=== PATIENT | male | born 1955 | race Caucasian/White ===

== ENCOUNTER → 2018-09-28 | Outpatient (CLI) | payer MEDICARE, OTHER ==
[~2018-09-28] MED LIST: ALBU90OI61 INH; ATOR40TA PO; BUPR100 PO; CHLO25 PO; CIPR500 PO; CIPRO500 MG PO; DIAZ5 PO; FOLI1 PO; Flagyl500 MG PO; LEVSOD100 PO; LORA1 PO; Micro-K10 MEQ PO; Miralax17 GM PO; NAPR550 PO; ONDA4ODT MM; RXNAPNA550 PO; THIA100 PO; TRAM50 PO
== END | disposition home or self-care (01) ==
LOC: LAB SHORT 14:49 → LAB 14:49
DX: R30.0 Dysuria (principal)
CPT/HCPCS: 87086; 87147

== ENCOUNTER 2018-12-30 15:45 | Inpatient (IN) | payer MEDICARE, OTHER ==
[~2018-12-30] VITALS: Ht 177.8 cm; Wt 73.2 kg
[2018-12-30 18:32] LABS: Alanine Aminotransfer (ALT/SGP 81 U/L (12-78); Albumin, Blood 2.7 g/dL (3.4-5.0); Albumin/Globulin Ratio 0.8 (0.8-1.8); Alk Phos 161 U/L (50-136); Anion Gap 10 mmol/L (6-16); Aspartate Aminotrans (AST/SGOT 95 U/L (12-37); Bilirubin, Total 3.4 mg/dL (0.1-1.0); Blood Urea Nitrogen 18 mg/dL (8-24); Bun/Creatinine Ratio 16.8 (12.0-20.0); CO2, Blood 38 mmol/L (21-32); Calcium, Blood 8.4 mg/dL (8.5-10.1); Chloride, Blood 74 mmol/L (98-108); Creatinine, Blood 1.07 mg/dL (0.60-1.20); Globulin, Blood 3.5 g/dL (2.2-4.0); Glomerular Filtration Rate >60 (60-); Glucose, Blood 89 mg/dL (70-99); Potassium, Blood 1.9 mmol/L (3.5-5.5); Sodium, Blood 122 mmol/L (136-145); Total Protein, Blood 6.2 g/dL (6.4-8.2)
[2018-12-30 19:17] LABS: Source, Urine Clean Catch
[2018-12-30 19:24] LABS: Mean Platelet Volume 10.1 fL (9.1-12.4); Platelet Count 131 K/mm3 (150-400); RDW Coefficient Variation 12.8 % (11.7-14.2); RDW Standard Deviation 51.9 fL (35.1-46.3); Red Blood Cell Count 2.83 M/mm3 (4.30-5.90); White Blood Cell Count 13.76 K/mm3 (4.00-11.30)
[2018-12-30 19:24] LABS: Blood, Urine 4+ (Neg); Glucose Qualitative, Urine Neg (Neg); Ketones, Urine 1+ (Neg); Leukocyte Esterase, Urine 1+ (Neg); Nitrite, Urine Neg (Neg); Protein, Urine 3+ (Neg); Urobilinogen, Urine 2+ (Normal)
[2018-12-30 19:49] LABS: Appearance, Urine Hazy (Clear); Bilirubin, Urine 1+ (Neg); Color, Urine Yellow (P-Yellow)
[2018-12-30 19:51] LABS: White Blood Cells, Urine 0-2 /hpf (0-5)
[2018-12-30 19:53] LABS: Bacteria Few /hpf; Red Blood Cells, Urine Rare /hpf (0-2); Squamous Epithelial Cells Rare /hpf (Few)
[2018-12-30 20:14] LABS: Hemoglobin 12.2 g/dL (13.5-17.5); Mean Corpuscular HGB 43.1 pg (26.0-34.0)
[2018-12-30 20:17] LABS: Mean Corpuscular Volume 131 fL (80-100)
[2018-12-30 20:40] LABS: BASOPHILS PERCENT MAN 0 % (0-2); EOSINOPHILS PERCENT MAN 0 % (0-6); LYMPHOCYTES ABSOLUTE MAN 0.41 K/mm3 (0.84-5.20); LYMPHOCYTES PERCENT MAN 3 % (21-46); MONOCYTES ABSOLUTE MAN 0.68 K/mm3 (0.16-1.47); MONOCYTES PERCENT MAN 5 % (4-13); NEUTROPHILS ABSOLUTE MAN 12.65 K/mm3 (1.96-9.15); SEG NEUTROPHILS PERCENT MAN 92 % (41-73); TOTAL CELLS COUNTED 100
[2018-12-30 21:25] LABS: International Normalized Ratio 1.8; Prothrombin Time Results 18.1 Sec (9.7-11.5)
[2018-12-31 06:58] LABS: Platelet Count 133 K/mm3 (150-400); RDW Coefficient Variation 13.1 % (11.7-14.2); RDW Standard Deviation 54.3 fL (35.1-46.3); Red Blood Cell Count 2.77 M/mm3 (4.30-5.90); White Blood Cell Count 13.38 K/mm3 (4.00-11.30)
[2018-12-31 06:59] LABS: Alanine Aminotransfer (ALT/SGP 80 U/L (12-78); Albumin, Blood 2.5 g/dL (3.4-5.0); Albumin/Globulin Ratio 0.8 (0.8-1.8); Alk Phos 157 U/L (50-136); Anion Gap 8 mmol/L (6-16); Aspartate Aminotrans (AST/SGOT 101 U/L (12-37); Bilirubin, Total 3.7 mg/dL (0.1-1.0); Blood Urea Nitrogen 16 mg/dL (8-24); Bun/Creatinine Ratio 16.8 (12.0-20.0); CO2, Blood 38 mmol/L (21-32); Chloride, Blood 83 mmol/L (98-108); Creatinine, Blood 0.95 mg/dL (0.60-1.20); Glomerular Filtration Rate >60 (60-); Glucose, Blood 90 mg/dL (70-99); Sodium, Blood 129 mmol/L (136-145); Total Protein, Blood 5.5 g/dL (6.4-8.2)
[2018-12-31 07:02] LABS: Potassium, Blood 2.3 mmol/L (3.5-5.5)
[2018-12-31 07:45] LABS: Hemoglobin 11.7 g/dL (13.5-17.5); Mean Corpuscular HGB 42.2 pg (26.0-34.0)
[2018-12-31 07:50] LABS: Hematocrit 36.5 % (37.0-53.0)
[2018-12-31 07:51] LABS: Mean Corpuscular Volume 133 fL (80-100)
[2018-12-31 07:52] LABS: Mean Corpuscular HGB Conc 32.1 g/dL (31.5-36.5)
[2018-12-31 12:45] LABS: Anion Gap 5 mmol/L (6-16); Blood Urea Nitrogen 15 mg/dL (8-24); Bun/Creatinine Ratio 16.1 (12.0-20.0); CO2, Blood 39 mmol/L (21-32); Calcium, Blood 8.1 mg/dL (8.5-10.1); Chloride, Blood 85 mmol/L (98-108); Creatinine, Blood 0.93 mg/dL (0.60-1.20); Glomerular Filtration Rate >60 (60-); Glucose, Blood 101 mg/dL (70-99); Potassium, Blood 2.4 mmol/L (3.5-5.5); Sodium, Blood 129 mmol/L (136-145)
[2018-12-31] MEDS ORDERED: BUDE6HFA INH (12:56)
[2018-12-31] MEDS ORDERED: MELA3 PO (13:28)
--- NOTE | 2018-12-31 19:21 | NUR ---
SHIFT SUMMARY PT ALERT AND ORIENTED. VS STABLE. O2 SATS REMAIN ABOVE 90% ON 4L NC. LS EXP WHEEZES THROUGHOUT. PT COMPLAINS OF PAIN IN HIS NECK THAT IS CHRONIC. PT ABLE TO TRANSFER WITH SBA, BUT IS UNSTEADY ON HIS FEET. NC WITH KCL INFUSING PER ORDERS. PT HABING LIQUID BM THIS SHIFT. REPORT GIVEN TO PRIVATE DETECTIVE RN.
--- NOTE | 2018-12-31 19:45 | NUR ---
ASSUMED CARED PT RESTING IN ROOM COMFORTABLY AT THIS TIME. PT DAY SHIFT PT HAS BEEN RECEVING POTASSIUM IV, FOR LOW POTASSIUM LEVELS. PT ALSO C/O CHRONIC PAIN IN NECK AND KNEES. RESP EVEN UNLABORED ON 4L NC W/ SATS >92%. PT DENIES OTHER NEEDS AT THIS TIME. PT SBA TO BSC FOR DIARRHEA. CALL LIGHT IN REACH.
[2018-12-31] MEDS ORDERED: AMLO10 PO (20:18)
[2019-01-01 04:13] LABS: BASOPHILS ABSOLUTE AUTO 0.01 K/mm3 (0.00-0.23); BASOPHILS PERCENT AUTO 0 % (0-2); EOSINOPHILS ABSOLUTE AUTO 0.03 K/mm3 (0.00-0.68); EOSINOPHILS PERCENT AUTO 0 % (0-6); Hematocrit 32.7 % (37.0-53.0); IMMATURE GRAN PERCENT AUTO 1 % (0-1); LYMPHOCYTES PERCENT AUTO 3 % (21-46); MONOCYTES ABSOLUTE AUTO 1.13 K/mm3 (0.16-1.47); MONOCYTES PERCENT AUTO 9 % (4-13); Mean Corpuscular HGB 40.8 pg (26.0-34.0); Mean Corpuscular HGB Conc 36.7 g/dL (31.5-36.5); Mean Platelet Volume 10.4 fL (9.1-12.4); NEUTROPHILS ABSOLUTE AUTO 11.22 K/mm3 (1.96-9.15); NEUTROPHILS PERCENT AUTO 87 % (41-73); Platelet Count 124 K/mm3 (150-400); RDW Coefficient Variation 13.2 % (11.7-14.2); RDW Standard Deviation 54.5 fL (35.1-46.3); Red Blood Cell Count 2.94 M/mm3 (4.30-5.90); White Blood Cell Count 12.89 K/mm3 (4.00-11.30)
[2019-01-01 04:15] LABS: Mean Corpuscular Volume 111 fL (80-100)
[2019-01-01 04:34] LABS: Magnesium, Blood 1.5 mg/dL (1.6-2.4)
[2019-01-01 04:56] LABS: Alanine Aminotransfer (ALT/SGP 99 U/L (12-78); Albumin, Blood 2.6 g/dL (3.4-5.0); Albumin/Globulin Ratio 0.8 (0.8-1.8); Alk Phos 160 U/L (50-136); Anion Gap 5 mmol/L (6-16); Aspartate Aminotrans (AST/SGOT 138 U/L (12-37); Bilirubin, Total 2.4 mg/dL (0.1-1.0); Blood Urea Nitrogen 13 mg/dL (8-24); Bun/Creatinine Ratio 15.3 (12.0-20.0); CO2, Blood 38 mmol/L (21-32); Calcium, Blood 8.2 mg/dL (8.5-10.1); Chloride, Blood 87 mmol/L (98-108); Creatinine, Blood 0.85 mg/dL (0.60-1.20); Globulin, Blood 3.1 g/dL (2.2-4.0); Glomerular Filtration Rate >60 (60-); Glucose, Blood 111 mg/dL (70-99); Potassium, Blood 2.4 mmol/L (3.5-5.5); Sodium, Blood 130 mmol/L (136-145); Total Protein, Blood 5.7 g/dL (6.4-8.2)
--- NOTE | 2019-01-01 07:21 | NUR ---
SHIFT SUMMARY PT RESTING IN ROOM COMFORTABLY AT THIS TIME. PT HAD NO ACUTE CHANGES IN STATUS T/O NIGHT.PT SLEPT OFF AND ON, AND HAD 2 LIQUID STOOLS. PT WAS SBA TO BSC AMD NNEKA WELL. RESP EVEN UNLABORED ON 4L NC W/ SATS >95%. PT K LEVEL REMAINS LOW THIS AM, PROVIDER CALLED AND MEDICATIONS ORDERED. PT TOLERATING FAIR. CALL LIGHT IN REACH.
[2019-01-01 09:20] LABS: PCO2 Arterial 48.7 mmHg (35-45); PO2 Arterial 63.6 mmHg (80-100); pH Blood Arterial 7.54 (7.35-7.45)
--- NOTE | 2019-01-01 15:51 | NUR ---
PT ALERT AND ORIENTED. VS STABLE. O2 SATS HAVE REMAINED ABOVE 90% ON 2L NC. PT COMPLAINS OF PAIN IN HIS NECK AND LEGS. PT MEDICATED NEEDED. PT SBA TO THE BSC UNSTEADY ON FEET. PT CHANGED TO MEDICAL STATUS. REPORT CALLED TO MEDICAL FLOOR RN. WILL TRANSFER PT.
--- NOTE | 2019-01-01 18:26 | NUR ---
SHIFT SUMMARY- PT PCU TRANSFER THIS PM. PT AXO X3. PT ABLE TO TELL ME CURRENT MONTH AND YEAR BUT NOT CURRENT DAY. 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 MILD TREMORS OBSERVED WHEN PT EXTENDS ARMS. CIWA SCORE OF 8. MEDS GIVEN PER EMAR. BED ALARM ON. CALL LIGHT IN REACH. PT DENIES N/V. DENIES SOB. RESP E/U ON 2L O2 NC. NO OTHER SIGNIFICANT CHANGES THIS SHIFT.
--- NOTE | 2019-01-01 23:26 | NUR ---
ciwa 8 50 mg librium given and gave PT high calorie stanislaw drank 100%.
--- NOTE | 2019-01-02 04:35 | NUR ---
PT CONTINUES ON CIWA CHECKS. MEDICATED X 1 WITH 50 MG LIBRIUM WITH HELPFUL EFFECT. OXYGEN 2 L NC SMOKER. NO ATTEMPTS TO CLIMB OUT OF BED UNASSISTED
[2019-01-02 04:54] LABS: BASOPHILS PERCENT AUTO 0 % (0-2); EOSINOPHILS PERCENT AUTO 0 % (0-6); Hematocrit 30.9 % (37.0-53.0); Hemoglobin 11.6 g/dL (13.5-17.5); IMMATURE GRAN PERCENT AUTO 1 % (0-1); LYMPHOCYTES ABSOLUTE AUTO 0.59 K/mm3 (0.84-5.20); LYMPHOCYTES PERCENT AUTO 5 % (21-46); MONOCYTES PERCENT AUTO 9 % (4-13); Mean Corpuscular HGB 42.6 pg (26.0-34.0); Mean Corpuscular HGB Conc 37.5 g/dL (31.5-36.5); RDW Coefficient Variation 13.4 % (11.7-14.2); RDW Standard Deviation 56.8 fL (35.1-46.3); Red Blood Cell Count 2.72 M/mm3 (4.30-5.90); White Blood Cell Count 12.55 K/mm3 (4.00-11.30)
[2019-01-02 04:56] LABS: BASOPHILS ABSOLUTE AUTO 0.03 K/mm3 (0.00-0.23); EOSINOPHILS ABSOLUTE AUTO 0.04 K/mm3 (0.00-0.68); IMMATURE GRAN ABSOLUTE AUTO 0.11 K/mm3 (0.00-0.10); MONOCYTES ABSOLUTE AUTO 1.07 K/mm3 (0.16-1.47); NEUTROPHILS ABSOLUTE AUTO 10.77 K/mm3 (1.96-9.15); NEUTROPHILS PERCENT AUTO 85 % (41-73)
[2019-01-02 05:09] LABS: Mean Corpuscular Volume 114 fL (80-100); Mean Platelet Volume 10.4 fL (9.1-12.4); Platelet Count 116 K/mm3 (150-400)
[2019-01-02 05:26] LABS: Anion Gap 4 mmol/L (6-16); Blood Urea Nitrogen 10 mg/dL (8-24); Bun/Creatinine Ratio 14.7 (12.0-20.0); CO2, Blood 39 mmol/L (21-32); Calcium, Blood 8.4 mg/dL (8.5-10.1); Chloride, Blood 91 mmol/L (98-108); Creatinine, Blood 0.68 mg/dL (0.60-1.20); Glomerular Filtration Rate >60 (60-); Glucose, Blood 107 mg/dL (70-99); Magnesium, Blood 1.7 mg/dL (1.6-2.4); Phosphorus, Blood 1.6 mg/dL (2.5-4.9); Potassium, Blood 2.8 mmol/L (3.5-5.5); Sodium, Blood 134 mmol/L (136-145)
--- NOTE | 2019-01-02 08:00 | NUR ---
PT PLEASANT COOP A/O. SOME PAIN IN LOW BACK AND NECK. DR REAVES OKAYED TYLENOL. ADMININSTERED. SLOW TO RESPOND. CWA IS AT 5 THIS AM. SOME SHAKINESS IN HANDS. NO HALLUCINATIONS AT THIS TIME. NOT ADDING 2+3+4. DOES KNOW MONTH YR. WORK HISTORY. FAMILY, H/R REG, NO MURMER NOTED. NO TELE. LUNGS CLEAR UPPER, LIGHT WHEEZES IN BASES. ON 2L 02 AT THIS TIME. TRIED TO TURN OFF, DROPPED TO 88%. REPLACED . RESP EASY UNLABORED. BT X4 LAST BM 2 DAYS. WAS LIQUID PER PT. PENDING SAMPLE. VOIDS URINAL AND 1 ASST TO BATHROOM. BED IN LOW POSITION, CALL LITE IN REACH, BED ALARM ON FOR SAFETY.
--- NOTE | 2019-01-02 18:23 | NUR ---
PT PLEASANT TODAY. CWA IMPROVED. MOSTLY JUST LIGHT SHAKES. SOME C/O PAIN IN NECK AND LOW BACK. MED PER EMAR. HAS BEEN TAKING K+ T/O DAY. SOMEWHAT MORE AWAKE AND ARGUEMENTATIVE, BUT REMAINS PLEASANT. NO OTHER CONCERNS AT THIS TIME. BED IN LOW POSITION, CALL LITE IN REACH. BED ALARM ON FOR SAFETY
[2019-01-03 02:43] LABS: Adenovirus F 40/41 Not Detected (NOT DETECT); Astrovirus Not Detected (NOT DETECT); Campylobacter Sp Not Detected (NOT DETECT); Cryptosporidium Not Detected (NOT DETECT); Cyclospora Cayetanensis Not Detected (NOT DETECT); E. Coli O157 Not Detected (NOT DETECT); Entamoeba Histolytica Not Detected (NOT DETECT); Enteroaggregative E. coli-EAEC Not Detected (NOT DETECT); Enteropathogenic E. coli-EPEC Not Detected (NOT DETECT); Enterotoxigenic E. coli-ETEC Not Detected (NOT DETECT); Giardia Lamblia Not Detected (NOT DETECT); Norovirus GI/GII Not Detected (NOT DETECT); Plesiomonas Shigelloides Not Detected (NOT DETECT); Rotavirus A Not Detected (NOT DETECT); Salmonella Sp Not Detected (NOT DETECT); Sapovirus Not Detected (NOT DETECT); Shiga Toxin-prod E. coli-STEC Not Detected (NOT DETECT); Shigella/Enteroin E. coli-EIEC Not Detected (NOT DETECT); Vibrio Cholerae Not Detected (NOT DETECT); Vibrio Sp Not Detected (NOT DETECT); Yersinia Enterocolitica Not Detected (NOT DETECT)
--- NOTE | 2019-01-03 05:36 | NUR ---
SHIFT SUMMARY PT SLEPT POORLY, C/O GENERALIZED PAIN. MEDICATED WITH TYLENOL X2 THIS SHIFT. PT HAS OXYGEN ON PER NC AT 2L. UP TO BATHROOM WITH SBA AND WALKER, STOOL SPECIMEN SENT TO LAB AND TESTED POSITIVE FOR C-DIFF. HOSPITALIST CALLED AND NO NEW ORDERS RECEIVED. NORMA AT A 1. WILL CONTINUE TO MONITOR.
[2019-01-03 05:44] LABS: Anion Gap 6 mmol/L (6-16); Blood Urea Nitrogen 10 mg/dL (8-24); Bun/Creatinine Ratio 13.5 (12.0-20.0); CO2, Blood 35 mmol/L (21-32); Calcium, Blood 8.3 mg/dL (8.5-10.1); Chloride, Blood 92 mmol/L (98-108); Creatinine, Blood 0.74 mg/dL (0.60-1.20); Glomerular Filtration Rate >60 (60-); Glucose, Blood 95 mg/dL (70-99); Potassium, Blood 3.1 mmol/L (3.5-5.5); Sodium, Blood 133 mmol/L (136-145)
[2019-01-03] MEDS ORDERED: Vsl#3 Capsule1 EACH PO (12:19)
[2019-01-03] MEDS ORDERED: Micro-K10 MEQ PO (12:19)
--- NOTE | 2019-01-03 17:16 | NUR ---
DISCHARGED TO SNF WITH BELONGINGS AND TRANSFER PACKET. HE AMBULATES IN THE ROOM WITH 1 ASSIST AND A WALKER. HE HAD A SMALL WET STOOL JUST BEFORE HE LEFT. HE WEARS PULL UPS. HIS FRIEND BROUGHT HIS DOG INTO SEE HIM TODAY. TYLENOL GIVEN X1 THIS SHIFT FOR CHRONIC JOINT PAINS. REPORT GIVEN TO ALFONZO SALINAS RN.
== END 2019-01-03 16:00 | DRG 640 ==
LOC: ER 15:45 → ERHOLD 21:00 → MEDS 12-31 13:00 → PCU 12-31 13:53 → MEDS 01-01 16:43 → ENPENDDIS 01-03 11:19 → MEDS 01-03 16:00
PROVIDERS: Internal Medicine; Physician Assistant; ADMIT Internal Medicine
DX: E87.8 Other disorders of electrolyte and fluid balance, not elsewhere classified (principal); G92 Toxic encephalopathy; J96.21 Acute and chronic respiratory failure with hypoxia; J96.22 Acute and chronic respiratory failure with hypercapnia; F10.239 Alcohol dependence with withdrawal, unspecified; E44.0 Moderate protein-calorie malnutrition; E87.1 Hypo-osmolality and hyponatremia; E87.6 Hypokalemia; E83.42 Hypomagnesemia; K70.10 Alcoholic hepatitis without ascites; E03.9 Hypothyroidism, unspecified; E78.5 Hyperlipidemia, unspecified; G89.29 Other chronic pain; M54.2 Cervicalgia; R19.7 Diarrhea, unspecified; F17.210 Nicotine dependence, cigarettes, uncomplicated; E86.0 Dehydration; J44.9 Chronic obstructive pulmonary disease, unspecified; Z79.899 Other long term (current) drug therapy; Z68.24 Body mass index [BMI] 24.0-24.9, adult
CPT/HCPCS: 36415; 36600; 71045; 71046; 80048; 80053; 81001; 82140; 82550; 82803; 83735; 84100; 85025; 85027; 85610; 87086; 87324; 87507; 93005; 93010; 94640; 94760; 94761; 96361; 96365; 96366; 96367; 96372-59; 96375; 96376; 97110; 97116; 97162; 97530; 99285-25; A9270; G0480; J1650; J2060; J3010; J3411; J3475; J3480; J7030; J7040; J7042; J7050; J7120

== ENCOUNTER 2019-07-30 07:16 | Day surgery (SDC) | payer OTHER ==
[~2019-07-30] VITALS: Ht 177.8 cm; Wt 77.6 kg
[~2019-07-30 07:16] MED LIST changes: +AMLO10 PO; +BUDE6HFA INH; +MELA3 PO; +Vsl#3 Capsule1 EACH PO
== END 2019-07-30 09:35 | disposition home or self-care (01) ==
LOC: ORSCSDS 07:16
PROVIDERS: Surgery
PROC: 0DBM8ZX Excision of Descending Colon, Via Natural or Artificial Opening Endoscopic, Diagnostic (ICD-10-PCS; principal; 2019-07-30 08:30)
DX: Z12.11 Encounter for screening for malignant neoplasm of colon (principal); Z86.010 Personal history of colon polyps; D12.4 Benign neoplasm of descending colon; E78.5 Hyperlipidemia, unspecified; E03.9 Hypothyroidism, unspecified; F41.8 Other specified anxiety disorders; F32.9 Major depressive disorder, single episode, unspecified; I10 Essential (primary) hypertension; K21.9 Gastro-esophageal reflux disease without esophagitis; F17.210 Nicotine dependence, cigarettes, uncomplicated; J44.9 Chronic obstructive pulmonary disease, unspecified; Z79.899 Other long term (current) drug therapy
CPT/HCPCS: 88305; J2704; J7120

== ENCOUNTER 2021-02-07 15:07 | Emergency (ER) | payer OTHER ==
[~2021-02-07] VITALS: Ht 177.8 cm; Wt 63.5 kg
[2021-02-07 17:16] LABS: BASOPHILS ABSOLUTE AUTO 0.04 K/mm3 (0.00-0.23); BASOPHILS PERCENT AUTO 0 % (0-2); EOSINOPHILS ABSOLUTE AUTO 0.01 K/mm3 (0.00-0.68); EOSINOPHILS PERCENT AUTO 0 % (0-6); Hematocrit 36.9 % (37.0-53.0); Hemoglobin 13.5 g/dL (13.5-17.5); IMMATURE GRAN ABSOLUTE AUTO 0.04 K/mm3 (0.00-0.10); IMMATURE GRAN PERCENT AUTO 0 % (0-1); LYMPHOCYTES ABSOLUTE AUTO 0.59 K/mm3 (0.84-5.20); LYMPHOCYTES PERCENT AUTO 6 % (21-46); MONOCYTES ABSOLUTE AUTO 0.37 K/mm3 (0.16-1.47); MONOCYTES PERCENT AUTO 4 % (4-13); Mean Corpuscular HGB 38.8 pg (26.0-34.0); Mean Corpuscular HGB Conc 36.6 g/dL (31.5-36.5); Mean Corpuscular Volume 106 fL (80-100); NEUTROPHILS ABSOLUTE AUTO 8.95 K/mm3 (1.96-9.15); NEUTROPHILS PERCENT AUTO 90 % (41-73); Platelet Count 143 K/mm3 (150-400); RDW Coefficient Variation 13.7 % (11.7-14.2); RDW Standard Deviation 53.5 fL (35.1-46.3); Red Blood Cell Count 3.48 M/mm3 (4.30-5.90)
[2021-02-07 17:38] LABS: Alanine Aminotransfer (ALT/SGP 26 U/L (12-78); Albumin/Globulin Ratio 0.8 (0.8-1.8); Alk Phos 114 U/L (50-136); Anion Gap 16 mmol/L (6-16); Aspartate Aminotrans (AST/SGOT 54 U/L (12-37); Blood Urea Nitrogen 10 mg/dL (8-24); Bun/Creatinine Ratio 12.7 (12.0-20.0); CO2, Blood 29 mmol/L (21-32); Calcium, Blood 8.7 mg/dL (8.5-10.1); Chloride, Blood 87 mmol/L (98-108); Creatinine, Blood 0.79 mg/dL (0.60-1.20); Globulin, Blood 3.6 g/dL (2.2-4.0); Glomerular Filtration Rate >60 (60-); Glucose, Blood 80 mg/dL (70-99); Phosphorus, Blood 2.1 mg/dL (2.5-4.9); Sodium, Blood 132 mmol/L (136-145); Total Protein, Blood 6.6 g/dL (6.4-8.2)
[2021-02-07] MEDS ORDERED: MAGNESIUM OXID500 MG PO (20:00)
[2021-02-07] MEDS ORDERED: POTA20PAC PO (20:00)
[2021-02-07 20:10] LABS: Source, Urine Clean Catch
[2021-02-07 20:13] LABS: Blood, Urine 1+ (Neg); Color, Urine Brown (P-Yellow); Glucose Qualitative, Urine Neg (Neg); Ketones, Urine 2+ (Neg); Leukocyte Esterase, Urine 2+ (Neg); Nitrite, Urine Pos (Neg); Protein, Urine 2+ (Neg); Urobilinogen, Urine 3+ (Normal)
[2021-02-07 20:18] LABS: Bilirubin, Urine 2+ (Neg)
[2021-02-07 20:19] LABS: Appearance, Urine Hazy (Clear)
[2021-02-07] MEDS ORDERED: CIPR500 PO (20:20)
[2021-02-07 20:34] LABS: Bacteria Mod /hpf; Red Blood Cells, Urine 0-2 /hpf (0-2); Squamous Epithelial Cells Rare /hpf (Few)
== END 2021-02-07 21:45 | disposition home or self-care (01) ==
LOC: ER 15:07
PROVIDERS: Physician Assistant
DX: R53.1 Weakness (principal); E87.6 Hypokalemia; E83.42 Hypomagnesemia; F10.20 Alcohol dependence, uncomplicated; N39.0 Urinary tract infection, site not specified; J44.9 Chronic obstructive pulmonary disease, unspecified; F17.210 Nicotine dependence, cigarettes, uncomplicated; Z79.899 Other long term (current) drug therapy
CPT/HCPCS: 36415; 80053; 81001; 83690; 83735; 84100; 85025; 87086; 93005; 93010; 96365; 96366; 99283-25; A9270; G0480; J3475; J7030

== ENCOUNTER 2025-05-20 21:09 | Inpatient (IN) | payer MEDICARE, OTHER ==
[~2025-05-20] VITALS: Ht 172.7 cm; Wt 76.8 kg
[~2025-05-20 21:09] MED LIST changes: +MAGNESIUM OXID500 MG PO; +POTA20PAC PO
[2025-05-20] MEDS ORDERED: Diltiazem HCl 5 MG / ML 5ML Vial IV ONE ×2 (21:25→22:10)
[2025-05-20] MEDS ORDERED: NS 1,000 ML IV SCH (21:25)
[2025-05-20 21:32] LABS: BASOPHILS ABSOLUTE AUTO 0.04 K/mm3 (0.00-0.23); BASOPHILS PERCENT AUTO 0 % (0-2); EOSINOPHILS ABSOLUTE AUTO 0.01 K/mm3 (0.00-0.68); EOSINOPHILS PERCENT AUTO 0 % (0-6); Hematocrit 39.9 % (37.0-53.0); Hemoglobin 12.8 g/dL (13.5-17.5); IMMATURE GRAN ABSOLUTE AUTO 0.07 K/mm3 (0.00-0.10); IMMATURE GRAN PERCENT AUTO 1 % (0-1); LYMPHOCYTES ABSOLUTE AUTO 1.07 K/mm3 (0.84-5.20); LYMPHOCYTES PERCENT AUTO 9 % (21-46); MONOCYTES ABSOLUTE AUTO 1.33 K/mm3 (0.16-1.47); MONOCYTES PERCENT AUTO 11 % (4-13); Mean Corpuscular HGB Conc 32.1 g/dL (31.5-36.5); Mean Corpuscular Volume 103 fL (80-100); NEUTROPHILS ABSOLUTE AUTO 9.89 K/mm3 (1.96-9.15); NEUTROPHILS PERCENT AUTO 80 % (41-73); NRBC ABSOLUTE 0.00 K/mm3 (0.00-0.02); NRBC Auto 0.0 /100 WBC (0.0-0.2); Platelet Count 368 K/mm3 (150-400); RDW Coefficient Variation 13.7 % (11.7-14.2); RDW Standard Deviation 52.1 fL (35.1-46.3)
[2025-05-20 22:14] LABS: Alanine Aminotransfer (ALT/SGP 19 U/L (12-78); Albumin, Blood 2.8 g/dL (3.4-5.0); Albumin/Globulin Ratio 0.7 (0.8-1.8); Anion Gap 11 mmol/L (3-11); Aspartate Aminotrans (AST/SGOT 25 U/L (12-37); Bilirubin, Total 0.8 mg/dL (0.1-1.0); Blood Urea Nitrogen 43 mg/dL (8-24); CO2, Blood 30 mmol/L (21-32); Calcium, Blood 9.2 mg/dL (8.5-10.1); Chloride, Blood 99 mmol/L (98-108); Creatinine, Blood 1.86 mg/dL (0.60-1.20); Ethanol (Alcohol), Blood, Med <3 mg/dL; Globulin, Blood 3.9 g/dL (2.2-4.0); Glucose, Blood 129 mg/dL (70-99); Magnesium, Blood 1.4 mg/dL (1.6-2.4); Potassium, Blood 4.3 mmol/L (3.5-5.5); Sodium, Blood 136 mmol/L (136-145); Total Protein, Blood 6.7 g/dL (6.4-8.2)
[2025-05-20] MEDS ORDERED: Magnesium Sulf 2 GM/Water 50ML 50 ML IV ONE (22:30)
[2025-05-21] VITALS (77 sets, daily range): BP systolic 64–125; BP diastolic 41–103
[2025-05-21] MEDS ORDERED: Ipratropium/Albuterol SulF 2.5-0.5MG/3 ML Amp INH SCH (01:00)
[2025-05-21] MEDS ORDERED: FLU VACC TS2025(65UP)/MF59C/PF 45 MCG/0.5 ML SYRINGE IM SCH (01:00)
[2025-05-21] MEDS ORDERED: LORazepam 2 MG/ML 1ML Injection IV PRN ×2 (01:00→01:05)
[2025-05-21] MEDS ORDERED: NS 1,000 ML IV SCH ×2 (01:05→16:30)
[2025-05-21] MEDS ORDERED: Albuterol 2.5 MG/3 ML VIAL INH PRN (01:05)
[2025-05-21] MEDS ORDERED: CeFAZolin Sodium 1,000 MG in NS 50 ML IV SCH (03:15)
[2025-05-21 03:19] LABS: BASOPHILS ABSOLUTE AUTO 0.02 K/mm3 (0.00-0.23); BASOPHILS PERCENT AUTO 0 % (0-2); EOSINOPHILS ABSOLUTE AUTO 0.01 K/mm3 (0.00-0.68); EOSINOPHILS PERCENT AUTO 0 % (0-6); Hematocrit 37.2 % (37.0-53.0); Hemoglobin 12.2 g/dL (13.5-17.5); IMMATURE GRAN ABSOLUTE AUTO 0.03 K/mm3 (0.00-0.10); IMMATURE GRAN PERCENT AUTO 0 % (0-1); LYMPHOCYTES ABSOLUTE AUTO 0.65 K/mm3 (0.84-5.20); LYMPHOCYTES PERCENT AUTO 7 % (21-46); MONOCYTES ABSOLUTE AUTO 0.95 K/mm3 (0.16-1.47); MONOCYTES PERCENT AUTO 11 % (4-13); Mean Corpuscular HGB Conc 32.8 g/dL (31.5-36.5); Mean Corpuscular Volume 105 fL (80-100); NEUTROPHILS ABSOLUTE AUTO 7.31 K/mm3 (1.96-9.15); NEUTROPHILS PERCENT AUTO 82 % (41-73); NRBC ABSOLUTE 0.00 K/mm3 (0.00-0.02); NRBC Auto 0.0 /100 WBC (0.0-0.2); Platelet Count 315 K/mm3 (150-400); RDW Coefficient Variation 13.9 % (11.7-14.2); RDW Standard Deviation 53.0 fL (35.1-46.3)
[2025-05-21 03:59] LABS: Alanine Aminotransfer (ALT/SGP 20.0 U/L (12-78); Albumin, Blood 2.8 g/dL (3.4-5.0); Albumin/Globulin Ratio 0.8 (0.8-1.8); Anion Gap 7.0 mmol/L (3-11); Aspartate Aminotrans (AST/SGOT 26.0 U/L (12-37); Bilirubin, Total 0.6 mg/dL (0.1-1.0); Blood Urea Nitrogen 42.0 mg/dL (8-24); CO2, Blood 34.0 mmol/L (21-32); Calcium, Blood 9.3 mg/dL (8.5-10.1); Chloride, Blood 100.0 mmol/L (98-108); Creatinine, Blood 1.74 mg/dL (0.60-1.20); Globulin, Blood 3.5 g/dL (2.2-4.0); Glucose, Blood 117.0 mg/dL (70-99); Magnesium, Blood 2.2 mg/dL (1.6-2.4); Potassium, Blood 4.3 mmol/L (3.5-5.5); Sodium, Blood 137.0 mmol/L (136-145); Total Protein, Blood 6.3 g/dL (6.4-8.2)
[2025-05-21] MEDS ORDERED: NS 500 ML IV ONE (05:40)
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
[2025-05-21] MEDS ORDERED: Heparin Sodium,Porcine 5,000 UNIT/0.5 ML SDV SC SCH (09:00)
[2025-05-21] MEDS ORDERED: Lactobacil 2-S.Thermo-Bifido 1 1 Cap PO SCH (09:00)
--- NOTE | 2025-05-21 09:14 | NUR ---
ASSUMPTION OF CARE ASSUMED CARE OF PATIENT AT APPROX 0700. PATIENT A&OX4 AND ABLE TO MAKE NEEDS KNOWN. NO FOCAL DEFICITS. HR SINUS IN THE 70S-80S. BP STABLE WITH MAPS >65 ON THE LEVOPHED GTT. SEE FLOWSHEET FOR TITRATIONS. PATIENT ON 5L O2 VIA NC WITH SPO2 >94%. PATIENT HAD BM UPON ARRIVIAL TO ICU. PATIENT UP TO TOILET WITH FWW AND NURSE ASSIST TO VOID. PATIENT EXPRESSED WANTING TO "GET OUT OF HERE." CALL LIGHT NEAR.
[2025-05-21] MEDS ORDERED: DOPamine 400 MG/Dextrose 250 ML Bag IV ONE (13:33)
[2025-05-21] MEDS ORDERED: Sodium Bicarb 8.4% 50 mEq Syringe IV ONE (13:33)
[2025-05-21] MEDS ORDERED: Clindamycin 900mg in D5W 50ML 50 ML IV SCH (14:00)
[2025-05-21] MEDS ORDERED: Vancomycin (Pharmacy Consult) IV PRN (15:45)
[2025-05-21 16:01] LABS: Anion Gap 5.0 mmol/L (3-11); Blood Urea Nitrogen 37.0 mg/dL (8-24); CO2, Blood 33.0 mmol/L (21-32); Calcium, Blood 8.6 mg/dL (8.5-10.1); Chloride, Blood 102.0 mmol/L (98-108); Creatinine, Blood 1.44 mg/dL (0.60-1.20); Glucose, Blood 150.0 mg/dL (70-99); Potassium, Blood 4.2 mmol/L (3.5-5.5); Sodium, Blood 136.0 mmol/L (136-145)
--- NOTE | 2025-05-21 17:45 | NUR ---
SHIFT SUMMARY PATIENT A&OX4 AND ABLE TO MAKE NEEDS KNOWN. NO FOCAL DEFICITS. LAST CIWA WAS 5. PATIENT IN SINUS IN THE 70S. PATIENT OFF OF LEVOPHED SINCE 1550, BP STABLE WITH MAPS >65. PATIENT ON 3L O2 VIA NC WITH SPO2 >90%. PATIENT UP WITH FWW AND STAND BY ASSIST. PATIENT USES URINAL IND WITH YELLOW URINE OUT. NO BM THIS SHIFT. PATIENT ENDORSES DRINKING 4-6 OUNCES OF [place] DAILY WITH NO PLANS OF STOPPING. 18G IV TO RIGHT AND LEFT FA PATENT. BED IN LOWEST POSITION. CALL LIGHT IN REACH.
[2025-05-21 19:13] LABS: U Amphetamine Screen Not Detected; U Barbiturate Screen Not Detected; U Benzodiazapine Screen DETECTED; U Buprenorphine Screen Not Detected; U Cannabinoids Screen Not Detected; U Cocaine Screen Not Detected; U Methadone Screen Not Detected; U Methamphetamine Screen Not Detected; U Opiates Screen Not Detected; U Oxycodone Screen Not Detected; U Phencyclidine Screen Not Detected
--- NOTE | 2025-05-21 22:01 | NUR ---
ASSUMPTION OF CARE: ASSUMED CARE AT START OF SHIFT (1899). REPORT RECEIVED FROM DAY SHIFT RN. PT IS DOING WELL AND RESTING IN BED. PT IS ALERT BUT CONFUSED ABOUT THE DATE, ABLE TO FOLLOW COMMANDS. PT DENIES ANY PAIN, CP, OR SOB AT THIS TIME. LUNG SOUNDS ARE COARSE THROUGH OUT, ON O2 @ 3LPM VIA NC SPO2 >95%. SINUS RYTHM WITH SBP: 110'S MAP >65 HR: 70'S. IV: R AND L FORERAM. PT IS ABLE TO BEDSIDE URINAL WITH MINIMAL ASSISTANCE. LINES, AN CORDS PLACED OUT OF REACH. CALL LIGHT PLACED WITHIN REACH.
[2025-05-22] VITALS (30 sets, daily range): BP systolic 97–133; BP diastolic 58–74
[2025-05-22 03:10] LABS: BASOPHILS ABSOLUTE AUTO 0.03 K/mm3 (0.00-0.23); BASOPHILS PERCENT AUTO 0 % (0-2); EOSINOPHILS ABSOLUTE AUTO 0.08 K/mm3 (0.00-0.68); EOSINOPHILS PERCENT AUTO 1 % (0-6); Hematocrit 33.0 % (37.0-53.0); Hemoglobin 10.3 g/dL (13.5-17.5); IMMATURE GRAN ABSOLUTE AUTO 0.03 K/mm3 (0.00-0.10); IMMATURE GRAN PERCENT AUTO 0 % (0-1); LYMPHOCYTES ABSOLUTE AUTO 0.74 K/mm3 (0.84-5.20); LYMPHOCYTES PERCENT AUTO 10 % (21-46); MONOCYTES ABSOLUTE AUTO 0.92 K/mm3 (0.16-1.47); MONOCYTES PERCENT AUTO 12 % (4-13); Mean Corpuscular HGB Conc 31.2 g/dL (31.5-36.5); Mean Corpuscular Volume 107 fL (80-100); NEUTROPHILS ABSOLUTE AUTO 5.91 K/mm3 (1.96-9.15); NEUTROPHILS PERCENT AUTO 77 % (41-73); NRBC ABSOLUTE 0.00 K/mm3 (0.00-0.02); NRBC Auto 0.0 /100 WBC (0.0-0.2); Platelet Count 248 K/mm3 (150-400); RDW Coefficient Variation 14.0 % (11.7-14.2); RDW Standard Deviation 55.2 fL (35.1-46.3)
[2025-05-22 03:32] LABS: Anion Gap 6 mmol/L (3-11); Blood Urea Nitrogen 31 mg/dL (8-24); CO2, Blood 31 mmol/L (21-32); Calcium, Blood 8.2 mg/dL (8.5-10.1); Chloride, Blood 103 mmol/L (98-108); Creatinine, Blood 1.36 mg/dL (0.60-1.20); Glucose, Blood 88 mg/dL (70-99); Potassium, Blood 4.5 mmol/L (3.5-5.5); Sodium, Blood 135 mmol/L (136-145); Vancomycin, Random 14.5 ug/mL
--- NOTE | 2025-05-22 06:19 | NUR ---
SHIFT SUMMARY: PT IS DOING WELL AND RESTING IN BED. NO ACUTE CHANGES THROUGHOUT THE SHIFT. PT WAS ABLE TO SLEEP PART OF THE NIGHT, WHILE SLEEPING PT'S SPO2 LEVELS WOULD DROP INTO THE LOW 80'S. PT O2 WAS INCREASED TO 6LPM AND SPO2 >95%. THE REST OF THE VITAL SIGNS REMAINED STABLE THROUGHOUT THE NIGHT. LINES AND CORDS PLACED OUT OF REACH. CALL LIGHT PLACE WITHIN REACH.
--- NOTE | 2025-05-22 10:25 | NUR ---
ASSUMPTION OF CARE ASSUMED CARE OF PT AT APPROX. 0700. PT RESTING IN BED, SLEEPING BUT AROUSABLE. PT ORIENTED X4, ANSWERS QUESTIONS APPROPRIATELY, FOLLOWS DIRECTIONS PROMPTED. PT ABLE TO MAKE HIS NEEDS KNOWN. PT MOVES EXTREMITIES EQUALLY BILATERALLY. AMBULATES IN ROOM W/ ASSISTANCE. HR 60-80'S SINUS W/ PAC'S, PT DENIES CP/PRESSURE, MAP >65. PT ON 3L NC, SPO2 >92%, PT DENIES SOB/DIFFICULTY BREATHING. BOWEL TONES HYPOACTIVE BUT PRESENT THROUGHOUT. PT TOLERATING PO INTAKE. PT USES URINAL TO VOID. PIV IN PLACE TO RFA AND LFA, NS INFUSING AT 125ML/HR. PT CURRENTLY IN BEDSIDE RECLINER, CALL LIGHT IN REACH. CARE CONTINUES.
--- NOTE | 2025-05-22 16:17 | NUR ---
PT UPDATE PT ATTEMPTED TO GET OUT OF BED, RN TO ROOM, PT SITTING AT BEDSIDE NEEDING TO URINATE. URINAL PROVIDED. WHILE PT SITTING AT SIDE OF BED, SP02 DECREASED TO 60-70%. OXY MASK APPLIED, O2 INCREASED TO 10LPM. SPO2 RECOVERED, OXY MASK TITRATED DOWN TO 2L. SPO2 >95%. PT SITTING IN RECLINER, CHAIR ALARM IN PLACE. PT INSTRUCTED TO CALL BEFORE ATTEMPTING TO GET UP FROM CHAIR. CALL LIGHT IN REACH. CARE CONTINUES.
--- NOTE | 2025-05-22 18:02 | NUR ---
SHIFT SUMMMARY PT RESTING IN RECLINER, SLEEPING BUT AROUSABLE, ORIENTED X3-4 THIS SHIFT. PT CONFUSED UPON AWAKENING. PT ANSWERS QUESTIONS APPROPRIATELY, FOLLOWS DIRECTION WHEN PROMPTED AND IS ABLE TO MAKE HIS NEEDS KNOWN. PT MOVES EXTREMITIES EQUALLY BILATERALLY, AMBULATES IN THE ROOM WITH NURSE ASSIST. PT IMPULSIVE AT TIMES, CHAIR ALARM IN PLACE. HR 60-80'S SINUS WITH PAC'S, MAP >65. PT ON NC/OXYMASK THROUGHOUT THE SHIFT, TITRATED OXYGEN ACCORDINGLY, PT CURRENTLY ON 3LPM VIA NC, OXYGEN SATURATION >90%. ABDOMEN SOFT. BOWEL TONES ACTIVE THROUGHOUT, PT USES URINAL TO VOID. PIV IN PLACE TO RFA AND LFA SL. CALL LIGHT WITHIN REACH, CHAIR ALARM IN PLACE, CARE CONTINUES.
--- NOTE | 2025-05-22 19:29 | NUR ---
ASSUMPTION OF CARE NOTE: PT CURRENTLY SITTING UP IN CHAIR AND DROWSY BUT ABLE TO ANSWER QUESTIONS WHEN ASKED. PT IS A&OX2-3. PT IS [place] AND OFTEN HAS AN UNPRODUCTIVE COUGH THAT WAKES HIM UP. PT CURRENTLY ON 6L HIGH FLOW NC. AND SATS >90%. SBP;S IN 110'S AN HR IN 70'S.PT IS IMPULSIVE AND HAS CHAIR ALARM SET FOR SAFETY. PATENT PIV TO LFA &RFA. PATIENT STATES HE IS NOT IN PAIN BUT READY TO GO HOME. PT HAS CALL LIGHT IN REACH AND CHAIR ALARM SET.
[2025-05-23] VITALS (73 sets, daily range): BP systolic 83–132; BP diastolic 51–86
[2025-05-23] MEDS ORDERED: NS 1,000 ML IV ONE ×2 (04:42→05:00)
[2025-05-23] MEDS ORDERED: Albuterol 2.5 MG/3 ML VIAL INH PRN (04:45)
[2025-05-23 04:46] LABS: BASOPHILS ABSOLUTE AUTO 0.04 K/mm3 (0.00-0.23); BASOPHILS PERCENT AUTO 0 % (0-2); EOSINOPHILS ABSOLUTE AUTO 0.09 K/mm3 (0.00-0.68); EOSINOPHILS PERCENT AUTO 1 % (0-6); Hematocrit 42.9 % (37.0-53.0); Hemoglobin 13.2 g/dL (13.5-17.5); IMMATURE GRAN ABSOLUTE AUTO 0.39 K/mm3 (0.00-0.10); IMMATURE GRAN PERCENT AUTO 4 % (0-1); LYMPHOCYTES ABSOLUTE AUTO 0.58 K/mm3 (0.84-5.20); LYMPHOCYTES PERCENT AUTO 5 % (21-46); MONOCYTES ABSOLUTE AUTO 1.22 K/mm3 (0.16-1.47); MONOCYTES PERCENT AUTO 11 % (4-13); Mean Corpuscular HGB Conc 30.8 g/dL (31.5-36.5); Mean Corpuscular Volume 112 fL (80-100); NEUTROPHILS ABSOLUTE AUTO 8.70 K/mm3 (1.96-9.15); NEUTROPHILS PERCENT AUTO 79 % (41-73); NRBC ABSOLUTE 0.00 K/mm3 (0.00-0.02); NRBC Auto 0.0 /100 WBC (0.0-0.2); Platelet Count 326 K/mm3 (150-400); RDW Coefficient Variation 13.7 % (11.7-14.2); RDW Standard Deviation 56.0 fL (35.1-46.3)
[2025-05-23] MEDS ORDERED: NS 1,000 ML IV SCH (05:00)
[2025-05-23 05:07] LABS: Alanine Aminotransfer (ALT/SGP 18.0 U/L (12-78); Albumin, Blood 3.1 g/dL (3.4-5.0); Albumin/Globulin Ratio 0.7 (0.8-1.8); Anion Gap 3.0 mmol/L (3-11); Aspartate Aminotrans (AST/SGOT 33.0 U/L (12-37); Bilirubin, Total 0.4 mg/dL (0.1-1.0); Blood Urea Nitrogen 26.0 mg/dL (8-24); CO2, Blood 34.0 mmol/L (21-32); Calcium, Blood 9.5 mg/dL (8.5-10.1); Chloride, Blood 102.0 mmol/L (98-108); Creatinine, Blood 1.45 mg/dL (0.60-1.20); Globulin, Blood 4.3 g/dL (2.2-4.0); Glucose, Blood 135.0 mg/dL (70-99); Magnesium, Blood 1.7 mg/dL (1.6-2.4); Potassium, Blood 5.9 mmol/L (3.5-5.5); Sodium, Blood 133.0 mmol/L (136-145); Total Protein, Blood 7.4 g/dL (6.4-8.2)
[2025-05-23 05:17] LABS: pH Blood Arterial 7.15 (7.35-7.45)
[2025-05-23] MEDS ORDERED: Ipratropium/Albuterol SulF 2.5-0.5MG/3 ML Amp INH SCH (05:23)
[2025-05-23] MEDS ORDERED: Insulin Regular 100 UNIT/ML 10ML Vial IV ONE ×2 (05:40→07:30)
[2025-05-23] MEDS ORDERED: Mag Sulfate 1 GM/D5% 100ML 100 ML IV STA (05:41)
[2025-05-23] MEDS ORDERED: Pantoprazole Sodium 40 MG Injection IV SCH (06:00)
[2025-05-23] MEDS ORDERED: FentaNYL Citrate 50 MCG/ML 2 ML Injection IV PRN (06:10)
[2025-05-23] MEDS ORDERED: Etomidate 2MG / ML 10ML Vial IV ONE (06:28)
--- NOTE | 2025-05-23 06:47 | NUR ---
SHIFT SUMM: PT HAS BEEN RESTING THIS SHIFT AND ALTERNATING BETWEEN CHAIR AND BED UP UNTIL 421 WHEN PT DESATTED TO THE 70-80'S AND UNABLE TO RECOVER OR BECOME AROUSABLE WITH STERNUM RUB. PT THEN BECAME INTUBATED AND SEDATED AND IS CURRENTLY ON [facility] VENT. PATENT TEMP SMITH PLACED AND DRAINING TO GRAVITY. POT 5.9 AND 2 AMPS OF D/50 AND 5 U OF REG INSULIN IV GIVEN. PT WAS HAVING BRONCHOSPASMS AND WAS GIVEN 125 OF SOLUMEDROL AND 1G OF MAG. CURRENTLY SEDATED WITH PROP AT 20. NS BOLUS GIVEN FOR HYPOTENSION AFTER INTUBATION-DECREASED TO 125ML/HR AFTER BOLUS. SOFT BUE RESTRAINTS PLACED TO PREVENT EXTUBATION. SISTER PAT NOTIFIED AND UPDATED. CRITICAL LABS REPORTED TO DR EDGAR. REPORT GIVEN TO ADRIENNE GILMAN.
--- NOTE | 2025-05-23 07:13 | NUR ---
ASSUMPTION OF CARE RECEIVED REPORT FROM [facility] NURSE. PT SEDATED WITH PROP AT 20MCG/KG/HR. PT INTUBATED, VENT SETTINGS AC/PC //8/40% FIO2. SPO2 >92%. MAP >65. SBP >100. PT IN NSR. PT HAS SMITH CATH IN PLACE, WNL. PT HAS RAC AND LFA, WNL. PT AFEBRILE. PT TOLERATING VENT SETTINGS, PRN MEDS IN EMAR. CALL LIGHT WITHIN REACH AND NO NEEDS EXPRESSED AT THIS TIME.
[2025-05-23] MEDS ORDERED: Cetylpyridinium Chloride 1 EA MISC MT SCH (08:00)
[2025-05-23 08:17] LABS: pH Blood Venous 7.25 (7.34-7.37)
[2025-05-23 08:25] LABS: BASOPHILS ABSOLUTE AUTO 0.02 K/mm3 (0.00-0.23); BASOPHILS PERCENT AUTO 0 % (0-2); EOSINOPHILS ABSOLUTE AUTO 0.01 K/mm3 (0.00-0.68); EOSINOPHILS PERCENT AUTO 0 % (0-6); Hematocrit 35.4 % (37.0-53.0); Hemoglobin 10.6 g/dL (13.5-17.5); IMMATURE GRAN ABSOLUTE AUTO 0.10 K/mm3 (0.00-0.10); IMMATURE GRAN PERCENT AUTO 1 % (0-1); LYMPHOCYTES ABSOLUTE AUTO 0.19 K/mm3 (0.84-5.20); LYMPHOCYTES PERCENT AUTO 2 % (21-46); MONOCYTES ABSOLUTE AUTO 0.93 K/mm3 (0.16-1.47); MONOCYTES PERCENT AUTO 8 % (4-13); Mean Corpuscular HGB Conc 29.9 g/dL (31.5-36.5); Mean Corpuscular Volume 111 fL (80-100); NEUTROPHILS ABSOLUTE AUTO 9.84 K/mm3 (1.96-9.15); NEUTROPHILS PERCENT AUTO 89 % (41-73); NRBC ABSOLUTE 0.00 K/mm3 (0.00-0.02); NRBC Auto 0.0 /100 WBC (0.0-0.2); Platelet Count 249 K/mm3 (150-400); RDW Coefficient Variation 13.6 % (11.7-14.2); RDW Standard Deviation 56.0 fL (35.1-46.3)
[2025-05-23 08:52] LABS: Alanine Aminotransfer (ALT/SGP 13 U/L (12-78); Albumin, Blood 2.5 g/dL (3.4-5.0); Albumin/Globulin Ratio 0.7 (0.8-1.8); Anion Gap 9 mmol/L (3-11); Aspartate Aminotrans (AST/SGOT 24 U/L (12-37); Bilirubin, Total 0.5 mg/dL (0.1-1.0); Blood Urea Nitrogen 26 mg/dL (8-24); CO2, Blood 28 mmol/L (21-32); Calcium, Blood 8.8 mg/dL (8.5-10.1); Chloride, Blood 105 mmol/L (98-108); Creatinine, Blood 1.40 mg/dL (0.60-1.20); Globulin, Blood 3.4 g/dL (2.2-4.0); Glucose, Blood 201 mg/dL (70-99); Magnesium, Blood 1.6 mg/dL (1.6-2.4); Potassium, Blood 4.5 mmol/L (3.5-5.5); Sodium, Blood 137 mmol/L (136-145); Total Protein, Blood 5.9 g/dL (6.4-8.2); Vancomycin, Trough 13.2 ug/mL (5.0-10.0)
[2025-05-23] MEDS ORDERED: Multivitamins 1 Tab PO SCH (09:00)
[2025-05-23] MEDS ORDERED: Meropenem 2,000 MG in NS 250 ML IV SCH (09:00)
[2025-05-23] MEDS ORDERED: Albumin (Human) 25gm/100ml 100 ML IV SCH (09:55)
[2025-05-23] MEDS ORDERED: Folic Acid 1 MG TAB PT SCH (10:00)
[2025-05-23] MEDS ORDERED: Docusate Sodium Liquid 100 MG UDC PT PRN (10:20)
[2025-05-23] MEDS ORDERED: Magnesium Hydroxide Conc 10 ML UDC PT PRN (10:20)
[2025-05-23] MEDS ORDERED: Hydrogen Peroxide 1.5 % Solution MT SCH (12:00)
--- NOTE | 2025-05-23 17:44 | NUR ---
SHIFT SUMMARY PT IS INTUBATED AND SEDATED WITH PROP T/O SHIFT. SAT BEGAN AT 1645, PT DOES NOT OPEN EYES OR FOLLOW COMMANDS. PT REACTS TO NOXIOUS STIMULI. PT IS IN NSR WITH PACS, HR IN 80-90S, MAP >65. SBP IN 90-110S. PT ON VENTILATOR, ETT 8.0 AND 24 AT GUMS. PT WAS IN PC, PT NOW IN AC/VC 16/450/8/35% FIO2 WITH SPO2>92%. PT HAS MODERATE THIN CLEAR ORAL SECRETIONS. PT HAS SMITH CATH IN PLACE DRAINING TO GRAVITY WITH 390ML OUTPUT FOR SHIFT. PT HAS BLE +2 EDEMA WITH SCABBING. PHOTOS IN CHART. PT HAD SEVERE TREMORS DURING AM ASSESSMENT, TREATED WITH ATIVAN PER EMAR. TREMORS IMPROVED T/O SHIFT. CIWA <10 T/O SHIFT. PT WAS FEBRILE THIS AM TMAX 99.6 AT 0845, PT BECAME HYPOTHERMIC AND LOWEST TEMP WAS 94.2. PT HAS MI HUGGER PLACED, TEMP NOW AT 96.4. NO NEEDS EXPRESSED AT THIS TIME.
[2025-05-23] MEDS ORDERED: Lactobacil 2-S.Thermo-Bifido 1 1 Cap PT SCH (21:00)
[2025-05-24] VITALS (74 sets, daily range): BP systolic 92–137; BP diastolic 49–117
[2025-05-24 04:43] LABS: BASOPHILS ABSOLUTE AUTO 0.02 K/mm3 (0.00-0.23); BASOPHILS PERCENT AUTO 0 % (0-2); EOSINOPHILS ABSOLUTE AUTO 0.00 K/mm3 (0.00-0.68); EOSINOPHILS PERCENT AUTO 0 % (0-6); Hematocrit 28.4 % (37.0-53.0); Hemoglobin 9.4 g/dL (13.5-17.5); IMMATURE GRAN ABSOLUTE AUTO 0.10 K/mm3 (0.00-0.10); IMMATURE GRAN PERCENT AUTO 1 % (0-1); LYMPHOCYTES ABSOLUTE AUTO 0.13 K/mm3 (0.84-5.20); LYMPHOCYTES PERCENT AUTO 1 % (21-46); MONOCYTES ABSOLUTE AUTO 0.83 K/mm3 (0.16-1.47); MONOCYTES PERCENT AUTO 4 % (4-13); Mean Corpuscular HGB Conc 33.1 g/dL (31.5-36.5); NEUTROPHILS ABSOLUTE AUTO 19.89 K/mm3 (1.96-9.15); NEUTROPHILS PERCENT AUTO 95 % (41-73); NRBC ABSOLUTE 0.00 K/mm3 (0.00-0.02); NRBC Auto 0.0 /100 WBC (0.0-0.2); Platelet Count 251 K/mm3 (150-400); RDW Coefficient Variation 13.8 % (11.7-14.2); RDW Standard Deviation 52.0 fL (35.1-46.3)
[2025-05-24 04:45] LABS: Mean Corpuscular Volume 103 fL (80-100)
[2025-05-24 05:16] LABS: Albumin, Blood 2.9 g/dL (3.4-5.0); Anion Gap 8 mmol/L (3-11); Blood Urea Nitrogen 25 mg/dL (8-24); CO2, Blood 29 mmol/L (21-32); Calcium, Blood 9.2 mg/dL (8.5-10.1); Chloride, Blood 105 mmol/L (98-108); Creatinine, Blood 1.14 mg/dL (0.60-1.20); Glucose, Blood 130 mg/dL (70-99); Phosphorus, Blood 1.8 mg/dL (2.5-4.9); Potassium, Blood 4.6 mmol/L (3.5-5.5); Sodium, Blood 137 mmol/L (136-145)
[2025-05-24] MEDS ORDERED: Sodium Phosphate 20 MM in Dextrose 5% 500 ML IV ONE (06:45)
--- NOTE | 2025-05-24 07:15 | NUR ---
SHIFT SUMMARY PT REMAINS VENTILATED AC/VC /8/35% FIO2 AND TOLERATING APPROPRIATLEY, SPO2 >90% T/O THE NIGHT. PT IS MINIMALLY RESPONSIVE TO STIMULI, WILL OCASSIONALLY ATTEMTP TO OPEN HIS EYES WITHOUT SUCCESS, NO PURPOSEFUL MOVEMENT OF EXTREMETIES. PT HAS HAD MULTIPLE EPISODES OF MODERATE TREMORS, REQUIRING ATIVAN, MAX TEMP OF 99.6, BLAMKETS REMOVED AND TEMP DECREASED TO WNL. SBP HAS BEEN IN THE 110-110'S AND HR IN THE 70-80'S NSR. PT HAS TEMP SMITH IN PLACE, PATENT, AND DRAINING LIGHT YELLOW URINE TO GRAVITY. TUBE FEED VHP RUNNING AT 40ML/HR T/O THE NIGHT. PT HAS COPIOUS AMOUNTS OF ORAL SECRETIONS REQUIRING FREQUENT SUCTIONING. NO SIG SKIN ISSUES. PHOS LAB RESULTED @ 1.8, PER DR EDGAR ORDERED 1X 20MMOL OF NA PHOS. PROPOFOL INFUSING @ 15MCG/KG/MIN. SPOKE TO PT SISTER AT THE BEGINNING OF SHIFT WITH UPDATE. WILL REPORT TO ONCOMING DAYSHIFT NURSE
--- NOTE | 2025-05-24 08:00 | NUR ---
ASSUMPTION OF CARE ASSUMED CARE OF PT APPROX 0700. PT IS INTUBATED AND SEDATED, PROPOFOL INFUSING AT 15MCG/HR VIA POWERGLIDE IN ELLEN, PT HAS BILATERAL FOREARM PIV, SL. TF INFUSING AT 40ML VIA OGT THAT IS 63CM AT THE GUM, GOAL IS 60 TO BE TITRATED UP TODAY PER DIETARY ORDERS. SMITH TEMP IN PLACE AND DRAINING TO GRAVITY. PT IS DIFFICULT TO AROUSE, WILL RAISE EYEBROWS WHEN STIMULATED BUT DOES NOT OPEN EYES. TREMULOUS WHEN STIMULATED AND GRIMACING, MEDICATED WITH ATIVAN AND FENTANYL PER SEP, WILL REACH OUT TO PROVIDER TO DISCUSS ADJUSTING BENZO ORDERS PT IS STILL TREMULOUS AND OCEAN BIOLOGIST REPORTS DIFFICULTY CONTROLLING TREMORS OVERNIGHT. RHYTHM IS SINUS ON MONITOR WITH RATES IN THE 70S, BP STABLE WITH MAP >65, SATS >90% ON VENTILATOR, SETTINGS ARE A/C VC 14/450/5/30% FI02. CALL LIGHT WITHIN REACH.
[2025-05-24] MEDS ORDERED: Midazolam HCl 1MG / ML 2ML Vial IV PRN (08:10)
[2025-05-24 08:38] LABS: pH Blood Venous 7.35 (7.34-7.37)
[2025-05-24] MEDS ORDERED: Multivitamins 1 Tab PT SCH (09:00)
[2025-05-24 09:09] LABS: Vancomycin, Trough 13.6 ug/mL (5.0-10.0)
[2025-05-24 18:17] LABS: Magnesium, Blood 1.6 mg/dL (1.6-2.4); Phosphorus, Blood 3.0 mg/dL (2.5-4.9)
--- NOTE | 2025-05-24 18:25 | NUR ---
SHIFT SUMMARY PT REMAINS INTUBATED AND SEDATED, RASS -3. PROPOFOL INFUSING AT 15 MCG VIA POWERGLIDE IN ELLEN, PT HAS LFA PIV INFUSING SODIUM PHOS IN D5 AND RAC PIV, SL. SMITH IN PLACE AND DRAINING TO GRAVITY. VENT SETTINGS A/C VC 14/450/5/40 % FIO2. SATS REMAIN >92% , PT WITH COPIOUS ORAL SECRETIONS. PT CONTINOUS TO BE TREMULOUS WITH STIMULATION, MEDICATED FOR WITHDRAWAL PER CIWA PROTOCOL. RHYTHM REMAIINS SINUS IN THE 60S-70S AND BP IS STABLE WITH MAP >65 AND SYSTOLIC IN THE LOW 100S. BP WAS LABILE EARLIER IN THE SHIFT WITH MAP DIPPING TO 63-64, PT WAS MEDICATED WITH MIDODRINE PER MAR WITH GOOD RESPONSE. PT IN NO APPARENT DISTRESS, CALL LIGHT WITHIN REACH.
[2025-05-24] MEDS ORDERED: Magnesium Sulf 2 GM/Water 50ML 50 ML IV STA (19:49)
--- NOTE | 2025-05-24 22:20 | NUR ---
ASSUMED CARE PT REMAINS SEDATED WITH PROPOFOL AND INTUBATED ON AC/VC MODE. PT APPEARS COMFORTABLE.PT RESPONSIVE TO PAINFUL STIMULI ONLY. SPO2 >95% WITH EQUAL CHEST RISE AND EXPANSION. ABDOMEN IS MILDY DISTENDED, TUBE FEED CONTINUES AT GOAL RATE OF 60ML/HR. SMITH CATHETER IN PLACE, PATENT, AND DRAINING TO GRAVITY. NO NEW SKIN CONCERNS, SCD'S OFF TEMPORARILY PER DAYSHIFT TO ALEVIATE INCREASED BLE EDEMA. ALL IV ACCESS FLUSH AND POSITIVE BLOOD RETURN. PROPOFOL CONTINUES TO INFUSE AT 15MCG/KG. NO IMMEDIATE NEEDS OR CONCERNS AT THIS TIME.
[2025-05-25] VITALS (74 sets, daily range): BP systolic 91–136; BP diastolic 51–94
[2025-05-25 03:45] LABS: BASOPHILS ABSOLUTE AUTO 0.02 K/mm3 (0.00-0.23); BASOPHILS PERCENT AUTO 0 % (0-2); EOSINOPHILS ABSOLUTE AUTO 0.01 K/mm3 (0.00-0.68); EOSINOPHILS PERCENT AUTO 0 % (0-6); Hematocrit 30.0 % (37.0-53.0); Hemoglobin 10.1 g/dL (13.5-17.5); IMMATURE GRAN ABSOLUTE AUTO 0.10 K/mm3 (0.00-0.10); IMMATURE GRAN PERCENT AUTO 1 % (0-1); LYMPHOCYTES ABSOLUTE AUTO 0.09 K/mm3 (0.84-5.20); LYMPHOCYTES PERCENT AUTO 1 % (21-46); MONOCYTES ABSOLUTE AUTO 0.48 K/mm3 (0.16-1.47); MONOCYTES PERCENT AUTO 3 % (4-13); Mean Corpuscular HGB Conc 33.7 g/dL (31.5-36.5); Mean Corpuscular Volume 102 fL (80-100); NEUTROPHILS ABSOLUTE AUTO 15.72 K/mm3 (1.96-9.15); NEUTROPHILS PERCENT AUTO 96 % (41-73); NRBC ABSOLUTE 0.00 K/mm3 (0.00-0.02); NRBC Auto 0.0 /100 WBC (0.0-0.2); Platelet Count 293 K/mm3 (150-400); RDW Coefficient Variation 14.2 % (11.7-14.2); RDW Standard Deviation 52.5 fL (35.1-46.3)
[2025-05-25 04:17] LABS: Albumin, Blood 2.7 g/dL (3.4-5.0); Anion Gap 8 mmol/L (3-11); Blood Urea Nitrogen 28 mg/dL (8-24); CO2, Blood 30 mmol/L (21-32); Calcium, Blood 9.2 mg/dL (8.5-10.1); Chloride, Blood 103 mmol/L (98-108); Creatinine, Blood 0.95 mg/dL (0.60-1.20); Glucose, Blood 160 mg/dL (70-99); Phosphorus, Blood 2.5 mg/dL (2.5-4.9); Potassium, Blood 4.8 mmol/L (3.5-5.5); Sodium, Blood 136 mmol/L (136-145)
--- NOTE | 2025-05-25 06:43 | NUR ---
SHIFT SUMMARY PT REMAINS SEDATED AND INTUBATED. PT ARROUSES WITH PHYSICAL STIMULI, TREMULOUS EPISODES CONTNIUE TO PRESENT WITH STIMULATION, PRN VERSED AND FENTANYL GIVEN FOR RELIEF. PT AFEBRILE, NO PURPOSEFUL MOVEMENT NOTED, PERRLA. AC/VC MODE 14/450/8/45% AND TOLERATING VENT WITH OCASSIONAL COUGHING, SPO2 >90% T/O THE NIGHT. SBP IN THE 110'S WITH MAP >65 AND HR IN THE 70'S NSR. FOELY IN PLACE, PATENT, AND DRAINING TO GRAVITY, SMALL BM TONIGHT, TUBE FEED CONTINUOUS AT GOAL RATE OF 60ML/HR. PT RECIEVED FULL BED BATH AND LINEN CHANGE. PROPOFOL INFUSING AT 20MCG/KG. THIS RN SPOKE WITH PT JAYSHREE (NANCY) WITH UPDATE. NO IMMEDIATE NEEDS OR CONCERNS AT THIS TIME. WILL REPORT TO ONCOMING NURSE.
--- NOTE | 2025-05-25 10:07 | NUR ---
ASSUMED CARE AT 0700 PT LAYING IN BED SEDATED AND INTUBATED. HE IS SEDATED WITH PORPOFOL INFUSING AT 20MCG/KG/MIN AND TITRATED TO 10MCG/KG/MIN; HE OPENS EYES TO BERBAL STIMULATION BUT DOES NOT ANSWER Y/N QUESTIONS OR FOLLOWS DIRECTIONS; MOVING ALL BUE AND BLE SPONT. VENT SETTINGS AC/VC 14/450/8/40%; LARGE AMOUNT OF ORAL SECREATIONS. AFEBRILE. NSR WITH RATE 70-80'S. SBP 100-120'S WITH MAP 70-80'S. VHP INFUSING VIA OG AT 60ML/HR (GOAL) WITH 30ML FLUSHES Q4HR; TF PLACED ON SB AT [address]ELSON[address] SMITH IN PLACE AND DRAINING TO GRAVITY. SEE SHIFT ASSESSMENT FOR FULL ASSESSMENT.
--- NOTE | 2025-05-25 11:14 | NUR ---
EXTUBATION: PT EXTUBATED AT 1105 PER ORDERS. SPO2 >90% ON 5L O2 VIA NC FOLLOWING EXTUBATION. PT DEMONSTRATING STRONG COUGH AT THIS TIME. RECEIVING NEBULIZER PER RT.
--- NOTE | 2025-05-25 11:20 | NUR ---
UPDATE/EXTUBATION PT OFF PROPOFOL AT 0925 AND PLACED ON SPONT SHORTLY AFTERWARDS. PT FOLLOWING DIRECTIONS AND ANSWERING Y/N QUESTIONS WITH HEAD NODS. DR NELSON AT BEDSIDE AND GIVE ORDER TO EXTUBATE; TUBE FEED STOPPED AT TIME OF PROPOFOL AND OG REMOVED DURING EXTUBATION. PT EXTUBATED AT 1105 TO 5L NC AND TITRATED DOWN TO 2L NC.
--- NOTE | 2025-05-25 18:41 | NUR ---
END OF SHIFT SUMMARY PT HAS BEEN SOMNULENT SINCE EXTUBATION. HE IS NOW ORIENTED X4; CIWA 4-8, MEDICATED WITH ATIVEN FOR CIWA 8 AND HELPFUL. SPO2 >90% ON 4L NC; MODERATE TO LARGE AMOUNT OF CLEAR SECREATIONS COUGHED UP. AFEBRILE. NSR WITH PVC'S AT RATE 80'S. SBP 100-120, MAP >65. SMITH IN PLACE AND DRAINING TO GRAVITY. TOO SOMNULENT TO SAFELY SWOLLOW AT THIS TIME. WILL REPORT TO PM RN WHEN AVAILABLE.
--- NOTE | 2025-05-25 21:34 | NUR ---
ASSUMPTION OF CARE NOTE: ASSUMED CARE OF PT AT 1900 UPON WALKING INTO ROOM PT IS DROWSY AND WAS EXTUBATED TODAY. PT CURRENTLY ON 4LNC AND MAINTAINING SATS >90%. SBP IN 120'AND HR IN 80'S. PT IS AROUSABLE AND ABLE TO ANSWER QUESTIONS AND FOLLOW COMMANDS AND ORIENTED X3. PATENT PIV TO RFA AND LFA. PATENT PG TO ELLEN.PATENT SMITH DRAINING TO GRAVITY. PT HAS BEEN ABLE TO TOLERATE SOME FLUIDS AND TOOK MEDS WELL PO. HAS CALL LIGHT IN REACH AND BED LOW AND LOCKED FOR SAFETY.
[2025-05-26] VITALS (38 sets, daily range): BP systolic 89–141; BP diastolic 48–92
[2025-05-26 03:42] LABS: BASOPHILS ABSOLUTE AUTO 0.01 K/mm3 (0.00-0.23); BASOPHILS PERCENT AUTO 0 % (0-2); EOSINOPHILS ABSOLUTE AUTO 0.11 K/mm3 (0.00-0.68); EOSINOPHILS PERCENT AUTO 1 % (0-6); Hematocrit 32.1 % (37.0-53.0); Hemoglobin 10.5 g/dL (13.5-17.5); IMMATURE GRAN ABSOLUTE AUTO 0.10 K/mm3 (0.00-0.10); IMMATURE GRAN PERCENT AUTO 1 % (0-1); LYMPHOCYTES ABSOLUTE AUTO 0.32 K/mm3 (0.84-5.20); LYMPHOCYTES PERCENT AUTO 2 % (21-46); MONOCYTES ABSOLUTE AUTO 1.37 K/mm3 (0.16-1.47); MONOCYTES PERCENT AUTO 10 % (4-13); Mean Corpuscular HGB Conc 32.7 g/dL (31.5-36.5); Mean Corpuscular Volume 103 fL (80-100); NEUTROPHILS ABSOLUTE AUTO 12.30 K/mm3 (1.96-9.15); NEUTROPHILS PERCENT AUTO 87 % (41-73); NRBC ABSOLUTE 0.00 K/mm3 (0.00-0.02); NRBC Auto 0.0 /100 WBC (0.0-0.2); Platelet Count 253 K/mm3 (150-400); RDW Coefficient Variation 14.3 % (11.7-14.2); RDW Standard Deviation 53.8 fL (35.1-46.3)
[2025-05-26 04:04] LABS: Albumin, Blood 2.6 g/dL (3.4-5.0); Anion Gap 6 mmol/L (3-11); Blood Urea Nitrogen 27 mg/dL (8-24); CO2, Blood 35 mmol/L (21-32); Calcium, Blood 9.4 mg/dL (8.5-10.1); Chloride, Blood 101 mmol/L (98-108); Creatinine, Blood 0.94 mg/dL (0.60-1.20); Glucose, Blood 103 mg/dL (70-99); Phosphorus, Blood 3.9 mg/dL (2.5-4.9); Potassium, Blood 4.7 mmol/L (3.5-5.5); Sodium, Blood 137 mmol/L (136-145)
[2025-05-26 04:33] LABS: Magnesium, Blood 1.6 mg/dL (1.6-2.4)
[2025-05-26] MEDS ORDERED: Magnesium Sulf 2 GM/Water 50ML 50 ML IV ONE (04:45)
--- NOTE | 2025-05-26 05:20 | NUR ---
SHIFT SUMM: PT HAS HAD A RESTFUL EVENING THIS SHIFT AND WAS ABLE TO GET A STRETCH OF SLEEP. PT REMAINS A&OX3 AND WAS MEDICATED WITH 1MG OF ATIVAN FOR CIWA SCORE OF 8 AT 0000 AND IS NOW CIWA SCORE OF 6. PT'S PIV'S AND PG REMAIN PATENT. SMITH REMAINS PATENT AND DRAINING YELLOW URINE TO GRAVITY. SBP'S IN 110'S-120'S AND HR IN 70-80'S WITH MULTIPLE PAC'S, SOME PVC'S AND BIGEMINY. SPO2 >96% ON 4LNC. PT WAS ABLE TO SWALLOW PILLS WITH FLUIDS WELL. MAGNESIUM CURRENTLY INFUSING. PT HAS CALL LIGHT IN REACH AND BED LOW AND LOCKED FOR SAFETY.
--- NOTE | 2025-05-26 18:27 | NUR ---
SHIFT SUMMARY PT ALERT, COOPERATIVE, AND USING CALL LIGHT APPROPRIATELY. PT UNSURE OF WHAT YEAR IT IS, BUT IS OTHERWISE ORIENTED. PT CIWA 4 DURING SHIFT- DID NOT REQUIRE PRN MEDICATIONS DURING SHIFT. PT UP TO CHAIR FOR BATH AND WAS SHAKY ON FEET, REQUIRED 1 PERSON ASSIST W/ WALKER AND GAIT BELT. PT ALSO SAT UP AT BEDSIDE FOR MEALS. PT LUNGS CLEAR AFTER STRONG COUGH. PT USING SUCTION INDEPENDENTLY FOR SPUTUM. PT TITRATED DOWN TO 2L VIA NC WHICH IS BASELINE FOR PT. PT HR 70S, SINUS W/ PAC AND PVCS. PT DID HAVE ONE SELF LIMITING EPISODE OF AFIB W/ RATE OF 120S THIS AM THAT RESOLVED W/ OUT INTERVENTION. PT MAP>65. PT AFEBRILE. NO BM THIS SHIFT. SMITH CATH REMAINS IN PLACE- PATENT AND DRAINING TO GRAVITY. PT DIET ADVANCED TO SOFT AND BITE SIZED AND IS TOLERATING WELL. PT HAS DENTURES AT BEDSIDE. CALL LIGHT W/ IN REACH. PLAN OF CARE ONGOING.
--- NOTE | 2025-05-26 21:19 | NUR ---
ASSUMPTION OF CARE: ASSUMED CARE OF PT AT 1900 PT IS CURRENTLY RELAXING IN BED AND WATCHING TV. PT HAS MORE OF AN APPETITE AND HAS ENJOYED SOME FLUIDS AND SNACKS. PT IS ALERT AND ABLE TO MAKE NEEDS KNOWN AND ANSWER QUESTIONS/FOLLOW COMMANDS. PT KNEW THE YEAR AND SITUATION BUT DID NOT KNOW THE DATE. PT HAS PATENT SMITH DRAINING TO GRAVITY YELLOW URINE. PATENT PIV TO L&R FA. PATENT PG TO ELLEN. PT CURRENTLY ON 2L NC AND SPO2 >96%. SBP'S 120'S-130'S AND HR IN 60-70'S NSR W/PAC'S AND SOME PVC'S. PT HAS CALL LIGHT IN REACH AND BED LOW AND LOCKED FOR SAFETY.
[2025-05-27] VITALS (20 sets, daily range): BP systolic 103–140; BP diastolic 57–93
[2025-05-27 03:37] LABS: BASOPHILS ABSOLUTE AUTO 0.01 K/mm3 (0.00-0.23); BASOPHILS PERCENT AUTO 0 % (0-2); EOSINOPHILS ABSOLUTE AUTO 0.26 K/mm3 (0.00-0.68); EOSINOPHILS PERCENT AUTO 3 % (0-6); Hematocrit 31.6 % (37.0-53.0); Hemoglobin 10.2 g/dL (13.5-17.5); IMMATURE GRAN ABSOLUTE AUTO 0.08 K/mm3 (0.00-0.10); IMMATURE GRAN PERCENT AUTO 1 % (0-1); LYMPHOCYTES ABSOLUTE AUTO 0.31 K/mm3 (0.84-5.20); LYMPHOCYTES PERCENT AUTO 3 % (21-46); MONOCYTES ABSOLUTE AUTO 1.17 K/mm3 (0.16-1.47); MONOCYTES PERCENT AUTO 12 % (4-13); Mean Corpuscular HGB Conc 32.3 g/dL (31.5-36.5); Mean Corpuscular Volume 106 fL (80-100); NEUTROPHILS ABSOLUTE AUTO 8.32 K/mm3 (1.96-9.15); NEUTROPHILS PERCENT AUTO 82 % (41-73); NRBC ABSOLUTE 0.00 K/mm3 (0.00-0.02); NRBC Auto 0.0 /100 WBC (0.0-0.2); Platelet Count 281 K/mm3 (150-400); RDW Coefficient Variation 14.0 % (11.7-14.2); RDW Standard Deviation 54.8 fL (35.1-46.3)
[2025-05-27 03:58] LABS: Anion Gap 7.0 mmol/L (3-11); Blood Urea Nitrogen 26.0 mg/dL (8-24); CO2, Blood 35.0 mmol/L (21-32); Calcium, Blood 9.3 mg/dL (8.5-10.1); Chloride, Blood 99.0 mmol/L (98-108); Creatinine, Blood 0.99 mg/dL (0.60-1.20); Glucose, Blood 131.0 mg/dL (70-99); Magnesium, Blood 1.8 mg/dL (1.6-2.4); Potassium, Blood 4.9 mmol/L (3.5-5.5); Sodium, Blood 136.0 mmol/L (136-145)
[2025-05-27 04:03] LABS: Vancomycin, Trough 14.2 ug/mL (5.0-10.0)
--- NOTE | 2025-05-27 05:23 | NUR ---
SHIFT SUMMARY: PT HAS HAD A RESTFUL EVENING AND HAS HAD A LARGE APPETITE THIS SHIFT. PT'S PIV'S AND PG REMAIN PATENT. SARAH D/C'D THIS SHIFT. PT'S ORIENTATIONS REMAINS A&OX3.SBP'S IN 110'S-120'S HR IN 60-80'S WITH MULTIPLE PAC'S AND SOME PVC'S AND SPO2 > 96 ON 4L NC THIS SHIFT. TOLERATED PO MEDS WELL AND CALLS TO MAKE NEEDS KNOWN. BED LOW AND LOCKED FOR SAFETY.
--- NOTE | 2025-05-27 11:38 | NUR ---
ASSUMPTION OF CARE: ASSUMED CARE OF PT AT 0700. PT IS CURRENTLY A&OX4 AND PARTICPATES IN BSSR. HE HAS HAD A GOOD APPETITE PER NOC RN, AND IS INTERESTED IN BREAKFAST. HE IS ABLE TO MAKE NEEDS KNOWN, ANSWERS, AND RESPONDS TO ALL QUESTIONS APPROPRIATELY. PT USES BEDSIDE URINAL INDEPENDENTLY WITH DARK YELLOW URINE. PATIENT HAS PIV IN RFA AND LFA. POWERGLIDE IN LEFT ARM, PATENT AND INFUSING VANCOMYCIN PER EMAR. PT ON 2L O2 VIA NC, SPO2 >96. RESPIRATIONS SHALLOW AND UNLABORED. PT HAS OCASSIONAL PRODUCTIVE COUGH. SYSTOLIC BP 120-110S, MAP >65. HR 60-70S, NSR WITH ABERRANT PACS. LAST BM WAS 05/25/2025. PT USES WALKER TO AMBULATE WITH ASSISTANCE. BED IN LOWEST POSITION. CALL LIGHT IN REACH.
--- NOTE | 2025-05-27 13:45 | NUR ---
Transfer summary, pt taken to pcu room 02 by this rn via w/c. Pt dentures, wallet, and hearing aids w/ pt and all other belongings. Report to Susana GILMAN
--- NOTE | 2025-05-27 17:46 | NUR ---
Pt. is awake and eating dinner when he welcomes my visit. Pt. is pleasant. Facilitated a short life review. Listened with empathy and interest. Pt. displayed evidence of focusing more on his dinner, so this gear finisher offered to excuse myself. Pt. verbalized gratitude for the spiritual care visit and welcomed this gear finisher to return.
--- NOTE | 2025-05-27 17:53 | NUR ---
SHIFT SUMMARY PATIENT IS AOX3 ABLE TO MAKE NEEDS KNOWN. HE DENIES CP OR SOB. HIS VITALS ARE STABLE. HE IS TOLERATING HIS MEALS. HE IS A X1 ASSIST. HE DOES HAVE BLE EDEMA WELL HEAS BUE EDEMA. HIS CIWA SCORE IS A ZERO.
--- NOTE | 2025-05-27 22:16 | NUR ---
ASSUMED CARE OF PATIENT AT 1900. RECEIVED REPORT FROM DAY SHIFT NURSE. PATIENT LYING COMFORTABLY IN BED. A/O X3, TROUBLE REMEMBERING DAYS OF THE WEEK. SR 60-70s, DENIES CHEST PAIN OR PRESSURE. EXPIRATORY WHEEZING HEARD ON EXAM, SATS >90% ON ROOM AIR. PT EXPERIENCES URGENCY WITH URINATION, USES URINAL SITTING AT EDGE OF BED. PATIENT DESATS TO 80s WHEN URINATING, QUICKLY RECOVERS AFTER LYING BACK DOWN OR WHEN INSTRUCTED TO TAKE DEEP BREATHS. BED LOCKED IN LOWEST POSITION, CALL LIGHT WITHIN REACH.
[2025-05-28] VITALS (8 sets, daily range): BP systolic 115–136; BP diastolic 60–677
[2025-05-28 04:14] LABS: BASOPHILS ABSOLUTE AUTO 0.02 K/mm3 (0.00-0.23); BASOPHILS PERCENT AUTO 0 % (0-2); EOSINOPHILS ABSOLUTE AUTO 0.24 K/mm3 (0.00-0.68); EOSINOPHILS PERCENT AUTO 3 % (0-6); Hematocrit 33.7 % (37.0-53.0); Hemoglobin 10.5 g/dL (13.5-17.5); IMMATURE GRAN ABSOLUTE AUTO 0.16 K/mm3 (0.00-0.10); IMMATURE GRAN PERCENT AUTO 2 % (0-1); LYMPHOCYTES ABSOLUTE AUTO 0.37 K/mm3 (0.84-5.20); LYMPHOCYTES PERCENT AUTO 4 % (21-46); MONOCYTES ABSOLUTE AUTO 1.54 K/mm3 (0.16-1.47); MONOCYTES PERCENT AUTO 17 % (4-13); Mean Corpuscular HGB Conc 31.2 g/dL (31.5-36.5); Mean Corpuscular Volume 107 fL (80-100); NEUTROPHILS ABSOLUTE AUTO 6.93 K/mm3 (1.96-9.15); NEUTROPHILS PERCENT AUTO 75 % (41-73); NRBC ABSOLUTE 0.00 K/mm3 (0.00-0.02); NRBC Auto 0.0 /100 WBC (0.0-0.2); Platelet Count 276 K/mm3 (150-400); RDW Coefficient Variation 13.8 % (11.7-14.2); RDW Standard Deviation 54.4 fL (35.1-46.3)
[2025-05-28 04:45] LABS: Anion Gap 6.0 mmol/L (3-11); Blood Urea Nitrogen 23.0 mg/dL (8-24); CO2, Blood 35.0 mmol/L (21-32); Calcium, Blood 9.7 mg/dL (8.5-10.1); Chloride, Blood 98.0 mmol/L (98-108); Creatinine, Blood 1.07 mg/dL (0.60-1.20); Glucose, Blood 94.0 mg/dL (70-99); Magnesium, Blood 1.6 mg/dL (1.6-2.4); Potassium, Blood 5.3 mmol/L (3.5-5.5); Sodium, Blood 134.0 mmol/L (136-145)
[2025-05-28] MEDS ORDERED: Ipratropium/Albuterol SulF 2.5-0.5MG/3 ML Amp INH SCH (05:23)
--- NOTE | 2025-05-28 06:16 | NUR ---
SHIFT SUMMARY PATIENT REMAINS A/O X 3-4 AND COOPERATIVE WITH CARE. EPISODE OF CONFUSION X1, PT WALKED INDEPENDENTLY AND URINATED IN SINK, STATING HE FORGOT HE WAS AT THE HOSPITAL. PT REORIENTED, BED ALARM TURNED ON FOR SAFETY. SATS >90% ON 3-4L NC, DESATS WHEN USING URINAL AT EDGE OF BED. PT CONVERTED TO AFIB AT APPROXIMATELY 0600, CONVERTED BACK AT APPROXIMATELY 0620. PT IS LYING IN BED LOCKED IN LOWEST POSTITION, CALL LIGHT WITHIN REACH.
--- NOTE | 2025-05-28 19:09 | NUR ---
SHIFT SUMMARY/TRANSFER OF CARE: MED STATUS W/TELE A/O X4, PLEASANT AND COOPERATIVE WITH CARE, POOR HISTORIAN, OVER ESTIMATES OWN ABILITY. DESATS ON EXERTION, LOW RESPIRATORY RESERVE, SWITCHED TO HIGH FLOW NC, SAT >92% ON 5L, PT DENIES SOB. BUE AND BLE EDEMA, LEFT ARM WORSE THAN RIGHT, RESTING ON PILLOW, PT DENIES CHEST PAIN OR PRESSURE. SEEN BY PT/OT, DENTAL HYGIENE CONSULT PLACED. AMBULATED TO TOILET USING FWW, GAITBELT, 1-2 P ASSIST, VERY WEAK, TIRES QUICKLY. DISCUSSED SNF SERVICES AFTER DISCHARGE. ORIENTED TO CALL DON T FALL, ORIENTED TO CALL LIGHT, BED IN LOWEST POSITION, BED ALARM SET. TRANSFERRED TO ROOM 350, REPORT CALLED INTO [facility] AT 1850.
[2025-05-29 04:20] VITALS: BP 119/77
[2025-05-29] MEDS ORDERED: Metoprolol Tartrate 1 MG/ML 5 ML VIAL IV ONE (04:40)
[2025-05-29 05:17] VITALS: BP 124/79
[2025-05-29 05:58] LABS: BASOPHILS ABSOLUTE AUTO 0.04 K/mm3 (0.00-0.23); BASOPHILS PERCENT AUTO 0 % (0-2); EOSINOPHILS ABSOLUTE AUTO 1.10 K/mm3 (0.00-0.68); EOSINOPHILS PERCENT AUTO 8 % (0-6); Hematocrit 34.7 % (37.0-53.0); Hemoglobin 10.7 g/dL (13.5-17.5); IMMATURE GRAN ABSOLUTE AUTO 0.24 K/mm3 (0.00-0.10); IMMATURE GRAN PERCENT AUTO 2 % (0-1); LYMPHOCYTES ABSOLUTE AUTO 0.68 K/mm3 (0.84-5.20); LYMPHOCYTES PERCENT AUTO 5 % (21-46); MONOCYTES ABSOLUTE AUTO 2.05 K/mm3 (0.16-1.47); MONOCYTES PERCENT AUTO 16 % (4-13); Mean Corpuscular HGB Conc 30.8 g/dL (31.5-36.5); Mean Corpuscular Volume 107 fL (80-100); NEUTROPHILS ABSOLUTE AUTO 9.13 K/mm3 (1.96-9.15); NEUTROPHILS PERCENT AUTO 69 % (41-73); NRBC ABSOLUTE 0.00 K/mm3 (0.00-0.02); NRBC Auto 0.0 /100 WBC (0.0-0.2); Platelet Count 283 K/mm3 (150-400); RDW Coefficient Variation 13.5 % (11.7-14.2); RDW Standard Deviation 54.4 fL (35.1-46.3)
[2025-05-29 06:43] LABS: Anion Gap 2.0 mmol/L (3-11); Blood Urea Nitrogen 23.0 mg/dL (8-24); CO2, Blood 43.0 mmol/L (21-32); Calcium, Blood 9.5 mg/dL (8.5-10.1); Chloride, Blood 95.0 mmol/L (98-108); Creatinine, Blood 1.09 mg/dL (0.60-1.20); Glucose, Blood 84.0 mg/dL (70-99); Potassium, Blood 5.0 mmol/L (3.5-5.5); Sodium, Blood 135.0 mmol/L (136-145)
--- NOTE | 2025-05-29 06:44 | NUR ---
SHIFT SUMMARY PT TRANSFERRED FROM PCU DURING CHANGE OF SHIFT. PT ORIENTED, SLOW TO ANSWER, HARD OF HEARING, AND WITH MUMBLED SPEECH. PT ORIENTED, BUT FORGETFUL AND IMPULSIVE AT TIMES. PT ON 5-7 L HF NC DURING THE NIGHT. PT ON 5 L WHILE RESTING, BUT DESATS WITH ANY ACTIVITY AND O2 NEEDS INCREASE. EDEMA CONTINUES TO BLES'S AND BUE'S. BILATERAL LEGS RED WITH SCALING/ DRIED SKIN PATCHES. PT WITH TELE- SINUS RHYTHM UNTIL 414, THEN PT CONVERTED TO AFIB IN THE 140'S. HEART RATE SLOWED TO 110'S- 130'S. ONE TIME ORDER RECEIVED FOR IV METOPROLOL WITH SLIGHT IMPROVEMENT OF HEART RATE- AFIB CONTINUES. PT ASYMPTOMATIC. PT SLEPT INTERMITTENTLY DURING THE NIGHT
[2025-05-29 07:14] VITALS: BP 114/69
--- NOTE | 2025-05-29 08:51 | NUR ---
MD CALL DR REN INFORMED OF HR 150S SUSTAINED AFIB. TO TO HOLD MIDIDINE SBP GREATER THAN 100.
[2025-05-29] MEDS ORDERED: Metoprolol Tartrate 1 MG/ML 5 ML VIAL IV PRN (09:50)
--- NOTE | 2025-05-29 11:08 | NUR ---
RN NOTE CALL FROM [employer] AT 1023HRS. PT IN [place]YSTOLE. mR SALMERON WAS ON THE TOILET, HEAD SLUMPED, UNRESPONSIVE. CODE CALLED. 4 PERSON ASSISTANCE TO CARRY PATIENT OFF THE TOILET ONTO THE FLOOR AND CPR STARTED. CODE TEAM AT PT'S SIDE RIGHT AWAY. SEE CODE RECORD CHARTING FOR EPISODES OF CPR, RETURN OF CIRCULATION. TRANSFERED TO ICU 11 AND CODED AGAIN ON ROUTE FROM THE ELEVATOR TO ICU ROOM. DR REN AND PALIATIVE CARE RN CONTACTED FAMILY WHO WERE EN ROUTE. MR SALMERON WAS ON 7L NC ALL SHIFT. HE WAS APPROPRIATE AND ORIENTATED THIS MORNING. HE WAS ABLE TO STAND AT THE BEDSIDE WITH STAFF TO VOID. HE HAD A LARGE INCONTINENT SOFT STOOL THIS MORNING THEN AT TIME OF CODE HAD BEEN ASSISTED TO THE BATHROOM ON HIS OXYGEN WITH COMMISSIONS MANAGER. HE HAD BEEN IN AFIB THIS SHIFT UNTIL THE BENITA WITH RAPID VENTRICULAR RATE. HEART RATE DID DECREASE FROM 150S TO ~120-130S AFTER METOPROLOL. HE DENIED FEELING SYMPTOMATIC THIS MORNING, NO CHEST PAIN OR DISCOMFORT.
--- NOTE | 2025-05-29 11:53 | NUR ---
Upon responding to a Rapid Response, I supported Palliative Care RN Amisha in contacting family, I provided a pause and blessing, for staff and patient at the TOD at 1105. Wood [employer] Block Floor Installer Jarod waited for family to arrive and provided grief support.
--- NOTE | 2025-05-29 11:54 | NUR ---
Cardiac arrest on medical floor. After ROSC obtained, began transfer from room 350 to ICU 11. Pt had cardiac arrest in elevator. See CODE BLUE sheet for additional documentation. pronounced with Dr Suarez at 1105. Family in to see pt afterwards and took two patient's belonging bags.
--- NOTE | 2025-05-29 11:58 | NUR ---
SPiritual Care - [employer] - [employer] Called to ICU11 where the Doctors and nurses attempted to revive Pt. after he coded on the Med floor. DILLAN was called approx. 1030. Met Pts. sister and niece when the arrive and with the Palliative nurse brought them to the ICU waiting room where we all met with the Hospitalist and the Critical Care Doctor. Afterward brought the sister and niece to Pts. bedside. Where prayer was made for the Pt. and a blessing was given for the family. Family decided on [employer] and the iván phone number was given to the charge nurse. This contact agent brought the Pt. down to the surgical consult room so they could make family phone calls. Sister and niece verbalize gratitude fo rthe spiritual care visit.
--- NOTE | 2025-05-29 16:56 | NUR ---
RESPONDED TO CODE BLUE. MULTIPULE ATTEMPTS TO REACH PT'S NOK: SISTER PAT VIA PHONE. ULTIMATLY REACHED NIECE NANCY AT [phone]. UPDATED NANCY ON PT'S EXTENSIVE CODE/CPR AND INTUBATION. PLAN WAS TO GO TO ICU. NANCY WAS ABLE TO REACH PT'S SISTER IFRAH AT [phone]. NANCY CLEARLY STATED TO MAINTAIN FULL CODE STATUS UNTIL FAMILY TO GET TO HOSPITAL. PT CODED AGAIN WHILE IN ROUTE TO ICU. PT UNTIMATLY PASSED AT 1105 PRIOR TO FAMILY ARRIVAL. THIS PC RN AND ANA LANE, MET FAMILY AT THE SOUTH ENTRANCE. ESCORTED FAMILY TO ICU LOBBY TO MEET WITH PRIMARY PROVIDER AND DISPATCH COORDINATOR. MORAL SUPPORT PROVIDED.
== END 2025-05-29 20:30 | DRG 208 ==
LOC: ER 21:09 → ERHOLD 21:10 → ICUE 21:10 → PCU 05-27 13:30 → MEDS 05-28 18:54 → ICUE 05-29 11:03
PROVIDERS: Internal Medicine Critical Care Medicine; Student in an Organized Health Care Education/Training Program; ADMIT Internal Medicine
PROC: 5A12012 Performance of Cardiac Output, Single, Manual (ICD-10-PCS; principal; 2025-05-20)
PROC: 0BH17EZ Insertion of Endotracheal Airway into Trachea, Via Natural or Artificial Opening (ICD-10-PCS; 2025-05-20)
PROC: 3E033XZ Introduction of Vasopressor into Peripheral Vein, Percutaneous Approach (ICD-10-PCS; 2025-05-21)
PROC: 3E03329 Introduction of Other Anti-infective into Peripheral Vein, Percutaneous Approach (ICD-10-PCS; 2025-05-21)
PROC: 5A0935A Assistance with Respiratory Ventilation, Less than 24 Consecutive Hours, High Flow/Velocity Cannula (ICD-10-PCS; 2025-05-22)
PROC: 5A1945Z Respiratory Ventilation, 24-96 Consecutive Hours (ICD-10-PCS; 2025-05-23)
PROC: 0DH67UZ Insertion of Feeding Device into Stomach, Via Natural or Artificial Opening (ICD-10-PCS; 2025-05-23)
PROC: 30233J1 Transfusion of Nonautologous Serum Albumin into Peripheral Vein, Percutaneous Approach (ICD-10-PCS; 2025-05-23)
PROC: 4A033R1 Measurement of Arterial Saturation, Peripheral, Percutaneous Approach (ICD-10-PCS; 2025-05-23)
DX: J69.0 Pneumonitis due to inhalation of food and vomit (principal); G92.8 Other toxic encephalopathy; J96.21 Acute and chronic respiratory failure with hypoxia; J96.22 Acute and chronic respiratory failure with hypercapnia; I48.92 Unspecified atrial flutter; L03.115 Cellulitis of right lower limb; N17.9 Acute kidney failure, unspecified; L03.116 Cellulitis of left lower limb; I47.10 Supraventricular tachycardia, unspecified; F10.230 Alcohol dependence with withdrawal, uncomplicated; I82.409 Acute embolism and thrombosis of unspecified deep veins of unspecified lower extremity; I97.89 Other postprocedural complications and disorders of the circulatory system, not elsewhere classified; R57.9 Shock, unspecified; Z99.81 Dependence on supplemental oxygen; M54.2 Cervicalgia; G89.29 Other chronic pain; E78.5 Hyperlipidemia, unspecified; E03.9 Hypothyroidism, unspecified; J44.9 Chronic obstructive pulmonary disease, unspecified; I45.10 Unspecified right bundle-branch block; D64.9 Anemia, unspecified; E83.42 Hypomagnesemia; D72.829 Elevated white blood cell count, unspecified; I48.91 Unspecified atrial fibrillation; I27.21 Secondary pulmonary arterial hypertension; E87.5 Hyperkalemia; F17.210 Nicotine dependence, cigarettes, uncomplicated; I46.8 Cardiac arrest due to other underlying condition; Z90.49 Acquired absence of other specified parts of digestive tract; Z79.2 Long term (current) use of antibiotics; Z79.51 Long term (current) use of inhaled steroids; Z79.890 Hormone replacement therapy; Z98.890 Other specified postprocedural states; Z79.899 Other long term (current) drug therapy
CPT/HCPCS: 31500; 36415; 36600; 51701; 51702; 70450; 71045; 71260; 76700; 80048; 80053; 80069; 80202; 80320; 82140; 82803; 82947; 83605; 83735; 83880; 84100; 84439; 84443; 84484; 85025; 87040; 92526; 92610; 93005; 93010; 93306; 94002; 94003; 94640; 94644; 94645; 94664; 94762; 96361; 96365; 96366; 96367; 96368; 96372; 96375; 96376; 97110; 97116; 97161; 97164; 97165; 97168; 97530; 97535; 99285-25; A9270; C1751; G0378; J0690; J1265; J1644; J1815; J1938; J2060; J2185; J2250; J2470; J2704; J2919; J3010; J3373; J3411; J3475; J7030; J7040; J7050; J7060; J7120; P9047; Q9967